=== PATIENT | male | born 1990 | race Caucasian/White ===

== ENCOUNTER 2016-05-11 10:17 | Emergency (ER) | payer OTHER ==
--- NOTE | 2016-05-11 11:31 | ED ---
General Adult HPI - General Chief complaint: Fall Stated complaint: FALL AT [facility] Time Seen by Provider: 05/11/16 11:04 Source: patient, RN notes reviewed Mode of arrival: ambulatory Limitations: no limitations - History of Present Illness Initial comments: Patient is a 25-year-old male who presents emergency room today with a chief complaint of slip and fall that occurred just prior to arrival. He states he was getting out of car slipped on the ice fell down hitting his head. He does admit to increased neck pain. Does admit to chronic changes in his neck. States increased pain in both on the right and left side. Patient also admits to pain in lower lumbar. Patient denies any bowel or bladder incontinence retention. Denies any saddle anesthesia. Denies any lumbar radiculopathy. Patient denies any other complaints. He denies any loss conscious. Denies any headache. Patient denies any recent fever, chills, shortness of breath, chest pain, abdominal pain, nausea or vomiting, numbness or tingling, dysuria or hematuria, constipation or diarrhea, headaches or visual changes, or any other complaints. - Related Data Home Medications Medication Instructions Recorded Confirmed Cholecalciferol [Vitamin D3] 1,000 unit PO DAILY 05/11/16 05/11/16 Naproxen [Naprosyn] 500 mg PO Q12HR PRN 05/11/16 05/11/16 Pyridoxine [Vitamin B-6] 50 mg PO DAILY 05/11/16 05/11/16 Previous Rx's Medication Instructions Recorded Cyclobenzaprine [Flexeril] 10 mg PO TID #20 tab 05/11/16 Allergies Allergy/AdvReac Type Severity Reaction Status Date / Time azithromycin [From Zithromax] Allergy Unknown Verified 05/11/16 10:55 cefixime [From Suprax] Allergy Unknown Verified 05/11/16 10:55 Review of Systems ROS Statement: Those systems with pertinent positive or pertinent negative responses have been documented in the HPI. ROS Other: All systems not noted in ROS Statement are negative. Past Medical History Past Medical History: Hearing Disorder / Deafness Additional Past Medical History / Comment(s): "scoliosis, tremors in the hands" History of Any Multi-Drug Resistant Organisms: None Reported Additional Past Surgical History / Comment(s): cataract Past Psychological History: No Psychological Hx Reported Smoking Status: Current every day smoker Past Alcohol Use History: Occasional Past Drug Use History: None Reported General Exam - General Exam Comments Initial Comments: General: The patient is awake and alert, in no distress, and does not appear acutely ill. Eye: Pupils are equal, round and reactive to light, extra-ocular movements are intact. No nystagmus. There is normal conjunctiva bilaterally. No signs of icterus. Ears, nose, mouth and throat: There are moist mucous membranes and no oral lesions. Neck: The neck is supple, there is no tenderness or JVD. Cardiovascular: There is a regular rate and rhythm. No murmur, rub or gallop is appreciated. Respiratory: Lungs are clear to auscultation, respirations are non-labored, breath sounds are equal. No wheezes, stridor, rales, or rhonchi. Musculoskeletal: Normal appearance of the cervical, thoracic, lumbar spine. No step-offs deforms appreciated. No tenderness midline of the cervical spine. Mild tenderness in the lower lumbar from L1 to L3. Increased paravertebral tenderness both the cervical and lumbar spine. No tenderness on palpation to the thoracic. Strength 5/5. Sensation intact. Pulses equal bilaterally 2+. Neurological: A&O x 3. CN II-XII intact, There are no obvious motor or sensory deficits. Coordination appears grossly intact. Speech is normal. Skin: Skin is warm and dry and no rashes or lesions are noted. Psychiatric: Cooperative, appropriate mood & affect, normal judgment. Limitations: no limitations Course Vital Signs 05/11/16 10:27 Temperature 97.4 F L Pulse Rate 88 Respiratory 18 Rate Blood Pressure 112/68 O2 Sat by Pulse 97 Oximetry Medical Decision Making - Medical Decision Making Patient reexamined at this time shows no signs of distress. Patient neurologically intact in the emergency room. He denies any headache. Patient' s CT of the head and neck and does show some artifact. There is no obvious mass or hemorrhage. Patient's cervical spine is negative for any acute abnormalities. X-rays lumbar spine are negative for any fractures or compressions. Results were discussed with the patient. Patient will be discharged home. Disposition Clinical Impression: Fall Disposition: HOME SELF-CARE Condition: Good Instructions: Muscle Strain (ED) Additional Instructions: Please use medication as discussed. Please be aware that muscle relaxant may make you drowsy. Please follow-up with family doctor in the next 2 days of symptoms have not improved. Please return to emergency room if the symptoms increase or worsen or for any other concerns. Prescriptions: Cyclobenzaprine [Flexeril] 10 mg PO TID #20 tab Time of Disposition: 12:26
--- NOTE | 2016-05-11 11:49 | XR ---
EXAMINATION TYPE: XR lumbar spine 2 or 3V DATE OF EXAM: 05/11/2016 11:43 AM COMPARISON: NONE HISTORY: 25 year-old male back pain after slip and fall TECHNIQUE: 3 views FINDINGS: There is rightward truncal shift. 5 lumbar type vertebral bodies. Vertebral body heights are preserve d and alignment is maintained. IMPRESSION: 1. No vertebral compression collapse or malalignment. 2. Rightward truncal shift could be positional or secondary to muscle spasm.
--- NOTE | 2016-05-11 11:57 | CT ---
EXAMINATION TYPE: CT brain france block con DATE OF EXAM: 05/11/2016 11:40 AM COMPARISON: NONE HISTORY: Patient fell today. Patient complains of headache post fall. CT DLP: 1542 mGycm Automated exposure control for dose reduction was used. TECHNIQUE: CT scan of the head and cervical spine are performed without contrast. FINDINGS: Exam is limited due to artifact for subtle hemorrhage. No obvious acute intracranial hemo rrhage or mass effect. The ventricles and sulci are within normal limits in size. The globes are int act and the visualized sinuses are clear. Cervical spine is visualized in its entirety from C1 through upper thoracic levels and demonstrates s atisfactory alignment without evidence of acute fracture or dislocation. Prevertebral soft tissue ap pears within normal limits. The C1-C2 articulation is unremarkable. Scoliosis noted. Uncovertebral joint hypertrophy greater on the right C3-C4 bilaterally and C4-C5, C5-C6 and C6-C7. IMPRESSION: 1. There is no acute fracture or dislocation evident in the cervical spine. 2. Limited exam for subtle hemorrhage due to artifact. There is no obvious sizable acute intracranial hemorrhage, mass effect, or midline shift is seen.
[2016-05-11 12:37] VITALS: BP 131/63; PULSE 77; RESP 16; TEMP 97.6
== END 2016-05-11 12:38 | disposition home or self-care (01) ==
LOC: EC 10:17
DX: S09.90XA Unspecified injury of head, initial encounter (principal); M54.5 Low back pain; W00.0XXA Fall on same level due to ice and snow, initial encounter; Z88.1 Allergy status to other antibiotic agents; Z88.8 Allergy status to other drugs, medicaments and biological substances; H91.90 Unspecified hearing loss, unspecified ear; F17.200 Nicotine dependence, unspecified, uncomplicated
CPT/HCPCS: 70450; 72100; 72125; 99284

== ENCOUNTER → 2016-06-02 | Outpatient (CLI) | payer OTHER | END | disposition home or self-care (01) | LOC: LABWHC1 09:55 | PROVIDERS: ATTEND Urology | DX: N52.9 Male erectile dysfunction, unspecified (principal) | CPT/HCPCS: 36415; 84402; 84403 ==

== ENCOUNTER → 2016-07-26 | Outpatient (CLI) | payer OTHER ==
--- NOTE | 2016-07-27 16:34 | MR ---
EXAMINATION TYPE: MR cspine/lspine wo/w con DATE OF EXAM ORDERED: 07/26/2016 4:24 PM HISTORY: Evaluate for Mass / White Matter Changes. TECHNOLOGIST HISTORY AT TIME OF EXAM: WHITE MATTER CHANGES/EVALUATE FOR MASS IV CONTRAST: 10 cc of MultiHance COMPARISON: Previous MRI of the cervical spine dated 02/10/2016. TECHNIQUE: Multiplanar, multiecho imaging of the cervical spine was obtained with and without the in travenous administration of 10 cc of MultiHance on a 1.5 colin magnet. FINDINGS: CERVICAL SPINE: Prevertebral soft tissues are normal. Vertebral body height and alignment are maintained. Atlantoaxial relationships are normal. There is a normal craniocervical junction. Cord signal is normal. At C2-C3, there is mild left-sided intervertebral foraminal narrowing. There is no significant compre ssive discopathy. There is mild degenerative change in the uncovertebral joints. The facets are unrem arkable. At C3-C4, there is bilateral intervertebral foraminal narrowing. There is a diffuse disc displacement . There is uncovertebral joint disease. The facets are unremarkable. At C4-C5, there is right-sided intervertebral foraminal narrowing. There is no significant compressiv e discopathy. There is mild degenerative change in the facets and uncovertebral joints. At C5-C6, there is mild disc space loss. There is bilateral intervertebral foraminal narrowing, great er on the right than the left. There is mild facet arthropathy. There is mild uncovertebral joint dis ease. At C6-C7, is mild disc space loss. The intervertebral foramina are reasonably well-maintained. There is no significant compressive discopathy. The facets and uncovertebral joints are unremarkable. At C7-T1, no definite abnormality is seen. LUMBAR SPINE: Paraspinal soft tissues are normal. There is a mild levoscoliosis at the thoracolumbar junction. Vertebral body height and alignment are maintained. Cord signal is maintained. The conus ends normally at the level of the mid body of L1. At T12-L1, there are hypertrophic changes in the facets. At L1-2, there are mild hypertrophic changes in the facets. At L2-3, the intervertebral foramina are well maintained. There is a minimal, bilobed disc displaceme nt. There are hypertrophic changes in the facets. At L3-4, the intervertebral foramina are well maintained. There is no significant compressive discopa thy. There is mild hypertrophic change and capsulitis within the facets. At L4-5, the intervertebral foramina are well maintained. There is no significant compressive discopa thy. There is mild hypertrophic change and capsulitis in the facets. At L5-S1, the intervertebral foramina are well maintained. There is a central disc displacement minim ally effacing the thecal sac without neural compression. There are hypertrophic changes in the facets . IMPRESSION: 1. DIFFUSE FACET AND UNCOVERTEBRAL JOINT DISEASE IN THE CERVICAL SPINE AND FACET ARTHROPATHY IN THE L UMBAR SPINE. 2. MULTILEVEL INTERVERTEBRAL FORAMINAL NARROWING. 3. MINIMAL DEGENERATIVE DISC DISEASE, L1 TO. 4. TINY DISC DISPLACEMENT CENTRALLY AT L5-S1 EFFACING THE THECAL SAC WITHOUT NEURAL COMPRESSION. 5. NORMAL CORD SIGNAL IN CERVICAL AND LUMBAR REGIONS WITHOUT EVIDENCE OF ABNORMAL ENHANCEMENT.
== END | disposition home or self-care (01) ==
LOC: RADMRIMAIN 14:26
PROVIDERS: ATTEND Neurological Surgery
DX: M99.71 Connective tissue and disc stenosis of intervertebral foramina of cervical region (principal); M46.92 Unspecified inflammatory spondylopathy, cervical region; M51.27 Other intervertebral disc displacement, lumbosacral region; M51.36 Other intervertebral disc degeneration, lumbar region; M46.96 Unspecified inflammatory spondylopathy, lumbar region
CPT/HCPCS: 72156; 72158; A9577

== ENCOUNTER → 2016-07-27 | Outpatient (CLI) | payer OTHER ==
--- NOTE | 2016-07-27 17:35 | MR ---
MR thoracic spine with and without contrast history: Other vascular evaluate for masses, G 95.19, myelopathy, scoliosis Multiplanar multisequence and postcontrast images through the thoracic spine following 11 cc MultiHan ce IV. Correlation to prior MR cervical and lumbar spine 26 July 2016 There is a dextroscoliosis present centered at approximately T7-8. There is no significant central ca nal stenosis, disc herniation, or significant foraminal encroachment. No abnormal enhancement. Thorac ic cord signal is maintained. There is multilevel facet arthropathy causing minimal posterior lateral mass effect on the thecal sac especially in the lower thoracic spine. Multilevel Schmorl's node form ation is present. IMPRESSION: Scoliosis. Facet arthropathy.
== END | disposition home or self-care (01) ==
LOC: RADMRIMAIN 14:48
PROVIDERS: ATTEND Neurological Surgery
DX: M46.84 Other specified inflammatory spondylopathies, thoracic region (principal); M41.84 Other forms of scoliosis, thoracic region; G95.19 Other vascular myelopathies; R26.0 Ataxic gait
CPT/HCPCS: 72157; A9577

== ENCOUNTER → 2017-05-19 | Outpatient (CLI) | payer OTHER ==
--- NOTE | 2017-05-20 14:33 | MR ---
EXAMINATION TYPE: MR lumbar spine wo con DATE OF EXAM: 05/19/2017 COMPARISON: July 26, 2016. HISTORY: LUMBAGO, low back pain, M 54.5 TECHNIQUE: Multiplanar, multisequence images of the lumbar spine were acquired. Visualized soft tissue structures are unremarkable. Vertebral body height is maintained. There is a mild levoscoliosis of the thoracolumbar junction. The cord signal is normal and the conus ends at the mid vertebral body of L1. Mild intervertebral disc d esiccation is noted at the level of L2-3. T12-L1: No central canal stenosis or neural foraminal narrowing is identified. There is no hypertroph ic change of the facets. L1-2: Mild hypertrophic changes identified at the facets. No central canal stenosis or neural foramin al narrowing is identified. L2-3: Intervertebral foramen are widely patent. Again minimal disc displacement is noted into both ne ural foramina as well as hypertrophic changes. There is no neural foraminal narrowing. L3-4: There is no central canal stenosis or neural foraminal narrowing. There is minimal disc bulge i dentified into both neural foramina. L4-5: Minimal disc bulges noted into both neural foramina. There is also facet hypertrophy. There is mild left-sided neural foraminal narrowing. There is no right-sided neural foraminal narrowing. There is no central canal stenosis. L5-S1: Mild facet hypertrophy is identified. No central canal stenosis or neural foraminal narrowing is identified. IMPRESSION: Mild spondylosis does not appear significant changed since the previous study.
--- NOTE | 2017-05-20 15:15 | MR ---
EXAMINATION TYPE: MR brain wo/w con DATE OF EXAM: 05/19/2017 COMPARISON: February 10, 2016 HISTORY: Tremors, fall risk Dizziness and hearing loss bilaterally patient states that he previously had a cataract removed, has had a cortisone injection within the past 2 weeks, he has either permanent eyeliner or tattoos. TECHNIQUE: Multiplanar, multisequence images of the brain and brainstem is performed without and with IV contras t, utilizing 6 mL intravenous Gadavist . FINDINGS: Diffusion weighted images demonstrate no evidence of a recent infarct or other diffusion ab normality. There is no evidence of an acute or remote hemorrhage. No extra-axial fluid collection is identified. Periventricular white matter T2 and FLAIR hyperintensity is identified along the anterior horn left lateral ventricle. These findings appear unchanged since the previous study. Slight increa sed signal is also identified on the anterior horn of the right lateral ventricle white matter, again unchanged. The ventricular system and cisternal spaces are normal in size and appearance. The brain volume is age appropriate. 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 Midline structures demonstrate normal morphology. The craniocervical junction appears within normal limits. Post contrast images demonstrate no abnormal enhancement. The dural venous sinuses appear pa tent. The visualized paranasal sinuses are clear and the globes are intact. IMPRESSION: Findings in the brain appear stable and unchanged.
== END | disposition home or self-care (01) ==
LOC: RADMRIMAIN 12:45
PROVIDERS: ATTEND Psychiatry & Neurology Pain Medicine
DX: M47.816 Spondylosis without myelopathy or radiculopathy, lumbar region (principal); R90.82 White matter disease, unspecified
CPT/HCPCS: 70553; 72148; A9581

== ENCOUNTER 2017-06-07 03:27 | Emergency (ER) | payer OTHER ==
--- NOTE | 2017-06-07 03:42 | ED ---
General Adult HPI - General Chief complaint: Fall Stated complaint: FALL,SHOULDER INJURY Time Seen by Provider: 06/07/17 03:36 Source: patient, RN notes reviewed Mode of arrival: ambulatory Limitations: no limitations - History of Present Illness Initial comments: 27-year-old male presents to the emergency department with a chief complaint of right shoulder pain. He states he was getting over to the shower he tripped and fell landing onto his right shoulder. Patient states that he did not hit his head. There is no loss of consciousness. he is chronically unsteady and is a fall risk. They were concerned due to the continued pain. He states that the front of the right shoulder. No elbow pain or wrist pain. No other injury from the fall. Worse to movement or touch. Patient denies any recent fever, chills, shortness of breath, chest pain, back pain, abdominal pain, nausea vomiting, numbness or tingling, dysuria or hematuria, constipation or diarrhea, headaches or visual changes, or any other current symptoms. - Related Data Home Medications Medication Instructions Recorded Confirmed Cholecalciferol [Vitamin D3] 1,000 unit PO DAILY 05/11/16 06/07/17 Naproxen [Naprosyn] 500 mg PO Q12HR PRN 05/11/16 06/07/17 Pyridoxine [Vitamin B-6] 50 mg PO DAILY 05/11/16 06/07/17 Previous Rx's Medication Instructions Recorded Cyclobenzaprine [Flexeril] 10 mg PO TID #20 tab 05/11/16 Allergies Allergy/AdvReac Type Severity Reaction Status Date / Time azithromycin [From Zithromax] Allergy Unknown Verified 05/11/16 10:55 cefixime [From Suprax] Allergy Unknown Verified 05/11/16 10:55 Review of Systems ROS Statement: Those systems with pertinent positive or pertinent negative responses have been documented in the HPI. ROS Other: All systems not noted in ROS Statement are negative. Past Medical History Past Medical History: Hearing Disorder / Deafness Additional Past Medical History / Comment(s): "scoliosis, tremors in the hands" History of Any Multi-Drug Resistant Organisms: None Reported Additional Past Surgical History / Comment(s): cataract Past Psychological History: No Psychological Hx Reported Smoking Status: Current every day smoker Past Alcohol Use History: Occasional Past Drug Use History: None Reported General Exam - General Exam Comments Initial Comments: General: The patient is awake and alert, in no distress, and does not appear acutely ill. Neck: The neck is supple, there is no tenderness. Cardiovascular: There is a regular rate and rhythm. No murmur, rub or gallop is appreciated. Respiratory: Lungs are clear to auscultation, respirations are non-labored, breath sounds are equal. No wheezes, stridor, rales, or rhonchi. Musculoskeletal: Sensation intact with 2+ pulses throughout the right upper extremity. Full range of motion of the right wrist and elbow. Pain to anterior palpation of the right shoulder. Pain with range of motion. No pain throughout the right scapula. Neurological: CN II-XII intact, There are no obvious motor or sensory deficits. Coordination appears grossly intact. Speech is normal. Skin: Skin is warm and dry and no rashes or lesions are noted. Psychiatric: Normal mood and affect. Limitations: no limitations Course Vital Signs 06/07/17 03:30 Temperature 97.9 F Pulse Rate 90 Respiratory 20 Rate Blood Pressure 115/77 O2 Sat by Pulse 100 Oximetry Medical Decision Making - Medical Decision Making 27-year-old male presents for right shoulder pain after a slip and fall. At this time patient underwent x-rays. This time x-rays reviewed that appears to show a right shoulder contusion. This time we discussed Motrin Tylenol for pain. We discussed icing the area. We discussed return parameters and follow- up and all questions. Patient states that he understood and he is in agreement this plan. All questions answered. He will be discharged. - Radiology Data Radiology results: report reviewed, image reviewed Disposition Clinical Impression: Fall, Contusion of right shoulder Disposition: HOME SELF-CARE Condition: Stable Instructions: Contusion in Adults (ED) Additional Instructions: Please use medication as discussed. Please follow up with family doctor if symptoms have not improved over the next two days. Please return to the emergency room if your symptoms increase or worsen or for any other concerns. Referrals: Jarad Mock MD [Primary Care Provider] - 1-2 days Time of Disposition: 03:59
--- NOTE | 2017-06-07 03:57 | XR ---
EXAM: XR Right Shoulder Complete, 2 or More Views CLINICAL HISTORY: Reason: Pain TECHNIQUE: Two or more views of the right shoulder. COMPARISON: None. FINDINGS: Bones/joints: Unremarkable. No acute fracture. No dislocation. Soft tissues: Unremarkable. IMPRESSION: Normal right shoulder x-rays.
[2017-06-07] MEDS ORDERED: IBUPROFEN 600 MG STARTER PACK 4 TAB BTL PO STA (03:59)
[2017-06-07 08:14] VITALS: BP 115/77; PULSE 90; RESP 20; TEMP 97.9
== END 2017-06-07 04:12 | disposition home or self-care (01) ==
LOC: EC 03:27
DX: S40.011A Contusion of right shoulder, initial encounter (principal); H91.90 Unspecified hearing loss, unspecified ear; F17.200 Nicotine dependence, unspecified, uncomplicated; Z79.899 Other long term (current) drug therapy; Z88.1 Allergy status to other antibiotic agents; W18.2XXA Fall in (into) shower or empty bathtub, initial encounter; Y92.002 Bathroom of unspecified non-institutional (private) residence as the place of occurrence of the external cause
CPT/HCPCS: 99283

== ENCOUNTER 2017-06-12 19:26 | Emergency (ER) | payer OTHER ==
[2017-06-12 20:08] VITALS: RESP 16
--- NOTE | 2017-06-12 21:33 | ED ---
General Adult HPI <Daniel Chawla - Last Filed: 06/12/17 22:10> - General Source: patient, RN notes reviewed Mode of arrival: wheelchair Limitations: no limitations <Sonam Page - Last Filed: 06/12/17 22:49> - General Chief complaint: Extremity Injury, Lower Stated complaint: Left Leg Numbness/Cold/Swollen Time Seen by Provider: 06/12/17 21:02 - History of Present Illness Initial comments: This is a 27-year-old male presents to the emergency department with chief complaint of left lower extremity coldness, swelling and discoloration. Friend is at bedside and contributes to history as patient has hearing difficulties. Patient states that he has chronic cold bilateral lower extremities. He sees a neurologist who has performed tests and they have been unable to pinpoint a diagnosis. Patient states that today he noticed some discoloration of his left lower extremity and states he is experiencing numbness and pain. Patient's friend states that when she saw patient today he appeared unsteady on his feet, likely due to numbness and pain of his left foot. He denies any recent injuries or traumas. He denies recent surgeries or hospitalizations. Denies bilateral calf tenderness. Denies fever or chills, abdominal pain, nausea vomiting, headache or dizziness. (Sonam Page) - Related Data Home Medications Medication Instructions Recorded Confirmed Pyridoxine [Vitamin B-6] 50 mg PO DAILY 05/11/16 06/12/17 Baclofen 10 mg PO TID PRN 06/12/17 06/12/17 Pregabalin [Lyrica] 75 mg PO BID 06/12/17 06/12/17 Primidone [Mysoline] 50 mg PO DAILY 06/12/17 06/12/17 Propranolol [Inderal] 40 mg PO BID 06/12/17 06/12/17 Allergies Allergy/AdvReac Type Severity Reaction Status Date / Time azithromycin [From Zithromax] Allergy Unknown Verified 06/12/17 21:07 cefixime [From Suprax] Allergy Unknown Verified 06/12/17 21:07 Review of Systems ROS Other: All systems not noted in ROS Statement are negative. <Daniel Chawla - Last Filed: 06/12/17 22:10> ROS Other: All systems not noted in ROS Statement are negative. <Sonam Page - Last Filed: 06/12/17 22:49> ROS Statement: Those systems with pertinent positive or pertinent negative responses have been documented in the HPI. Past Medical History Past Medical History: Hearing Disorder / Deafness Additional Past Medical History / Comment(s): "scoliosis, tremors in the hands" History of Any Multi-Drug Resistant Organisms: None Reported Additional Past Surgical History / Comment(s): cataract Past Psychological History: No Psychological Hx Reported Smoking Status: Current every day smoker Past Alcohol Use History: Occasional Past Drug Use History: None Reported <Sonam Page - Last Filed: 06/12/17 22:49> General Exam <Daniel Chawla - Last Filed: 06/12/17 22:10> Limitations: no limitations <Sonam Page - Last Filed: 06/12/17 22:49> - General Exam Comments Initial Comments: General: Awake and alert, well-developed; in no apparent distress. Friend is at bedside. HEENT: Head atraumatic, normocephalic. Pupils are equal, round and reactive to light. Extraocular movements intact. Neck: Supple. Normal ROM. Cardiovascular: Regular rate and rhythm. No murmurs, rubs or gallops. Chest symmetrical. Respiratory: Lungs clear to auscultation bilaterally. No wheezes, rales or rhonchi. Normal respiratory effort with no use of accessory muscles. Musculoskeletal: No tenderness on palpation of bilateral calves. Bilateral distal lower extremities are cold to the touch. There is mild discoloration that is blanchable to bilateral lower extremities. Posterior tibial pulses are 2+ equal and palpable bilaterally. Difficultly palpating pedal pulses. No swelling or evidence of injury. Skin: [place], warm and dry without rashes or lesions. Neurological: Alert and oriented x3. CN II-XII grossly intact. (Sonam Page) Course <Daniel Chawla - Last Filed: 06/12/17 22:10> <Sonam Page - Last Filed: 06/12/17 22:49> Vital Signs 06/12/17 20:04 Temperature 98.8 F Pulse Rate 89 Respiratory 16 Rate Blood Pressure 112/69 O2 Sat by Pulse 98 Oximetry - Reevaluation(s) Reevaluation #1: 06/12/17 22:10 Patient reevaluated by myself, Dr. Chawla. Patient resting comfortably in bed. Patient states this is a chronic condition for him. Patient has seen his doctor as well as neurologist for this. Patient has chronic coolness to his lower legs as well as discomfort. Patient states earlier today there was some possible swelling and discoloration. Patient states it appears somewhat discolored still. No color change noticed on exam. Lower legs into the feet is cool. Dorsalis pedis pulse is difficult to obtain however is obtainable with Doppler. This is felt to be likely secondary to patient's abnormal foot structure. Posterior tibialis pulses +2 bilateral. Cap refill 2 seconds. Patient is advised that he should follow up with vascular surgeon and rheumatology as well as primary care physician. (Daniel Chawla) Medical Decision Making <Daniel Chawla - Last Filed: 06/12/17 22:10> - Radiology Data Radiology results: report reviewed <Sonam Page - Last Filed: 06/12/17 22:49> - Medical Decision Making This is a 27-year-old male who presents to the emergency department for evaluation of lower extremity swelling, discoloration and coldness. This is a chronic issue for patient who has had workups in the past. Patient denies any recent injury, falls or trauma. Patient does have some mild coolness and discoloration to the bilateral lower extremities. Patient complains of pain to the left foot which does have Charcot deformity. This case was discussed with attending physician, Dr. Chawla who also evaluated the patient. Ultrasound venous Doppler revealed no evidence for a DVT. Patient will be discharged home with referral to vascular and rheumatology. Patient is in agreement with plan and voices understanding. All questions were answered. (Sonam Page) - Radiology Data Ultrasound venous Doppler left lower extremity impression: Normal exam. No evidence of deep venous thrombosis in the left leg. (Sonam Page) Disposition <Daniel Chawla - Last Filed: 06/12/17 22:10> Time of Disposition: 22:49 <Sonam Page - Last Filed: 06/12/17 22:49> Clinical Impression: Foot pain Disposition: HOME SELF-CARE Condition: Good Instructions: Leg Pain (ED) Additional Instructions: Please follow-up with Dr. Kamara, vascular surgery and Dr. Taylor, rheumatology within 1-2 days. Please follow up with primary care provider within 1-2 days. Return to emergency department if symptoms should worsen or any concerns arise. Referrals: Jarad Mock MD [Primary Care Provider] - 1-2 days Sunil Kamara MD [STAFF PHYSICIAN] - 1-2 days Chel Taylor MD [STAFF PHYSICIAN] - 1-2 days
--- NOTE | 2017-06-12 22:45 | US ---
EXAMINATION TYPE: US venous doppler duplex LE LT DATE OF EXAM: 06/12/2017 10:21 PM COMPARISON: NONE CLINICAL HISTORY: Pain. Left leg edema and numbness. SIDE PERFORMED: Left TECHNIQUE: The lower extremity deep venous system is examined utilizing real time linear array sonog fariha with graded compression, doppler sonography and color-flow sonography. VESSELS IMAGED: External Iliac Vein (EIV) Common Femoral Vein Deep Femoral Vein Greater Saphenous Vein * Femoral Vein Popliteal Vein Small Saphenous Vein * Proximal Calf Veins (* superficial vessels) Left Leg: Negative for DVT No evidence of DVT left leg. IMPRESSION: Normal exam. No evidence of deep venous thrombosis in the left leg.
[2017-06-12 23:00] VITALS: BP 115/62; PULSE 69; TEMP 98.7
== END 2017-06-12 23:00 | disposition home or self-care (01) ==
LOC: EC 19:26
DX: M79.672 Pain in left foot (principal); H91.90 Unspecified hearing loss, unspecified ear; F17.200 Nicotine dependence, unspecified, uncomplicated; Z88.1 Allergy status to other antibiotic agents; Z79.899 Other long term (current) drug therapy
CPT/HCPCS: 99283

== ENCOUNTER 2017-12-20 15:01 | Emergency (ER) | payer OTHER ==
[2017-12-20 15:51] VITALS: TEMP 98.5
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
--- NOTE | 2017-12-20 18:36 | XR ---
EXAMINATION: XR chest 2V DATE AND TIME: 12/20/2017 5:55 PM CLINICAL INDICATION: Pain TECHNIQUE: PA and lateral COMPARISON: 05/24/2011 FINDINGS: The lungs are clear. The pleural spaces are negative. The cardiac silhouette is not enlarged. The remainder of the mediastinal silhouette is unremarkable. The skeletal structures are negative for fracture. The soft tissues are negative for acute findings. IMPRESSION: NO ACUTE PROCESS.
--- NOTE | 2017-12-20 18:38 | XR ---
PROCEDURE: XR lumbar spine - 3V DATE AND TIME: 12/20/2017 5:56 PM CLINICAL INDICATION: [facility] Pain TECHNIQUE: Department protocol. 3V COMPARISON: 05/11/2016 FINDINGS: There is no fracture or malalignment. The soft tissues are unremarkable. IMPRESSION: NO ACUTE PROCESS.
[2017-12-20] MEDS ORDERED: ACETAMINOPHEN TAB 500 MG TAB PO STA (18:58)
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
[2017-12-20 19:11] VITALS: BP 117/70; PULSE 66; RESP 18
== END 2017-12-20 19:13 | disposition home or self-care (01) ==
LOC: EC 15:01
DX: M54.5 Low back pain (principal); R07.89 Other chest pain; R40.2412 Glasgow coma scale score 13-15, at arrival to emergency department; M54.2 Cervicalgia; H91.90 Unspecified hearing loss, unspecified ear; G62.9 Polyneuropathy, unspecified; F17.200 Nicotine dependence, unspecified, uncomplicated; Z79.899 Other long term (current) drug therapy; Z88.1 Allergy status to other antibiotic agents; V43.62XA Car passenger injured in collision with other type car in traffic accident, initial encounter; Y93.89 Activity, other specified; Y92.410 Unspecified street and highway as the place of occurrence of the external cause
CPT/HCPCS: 71046; 72100; 72125; 99284

== ENCOUNTER → 2019-02-05 | Outpatient (CLI) | payer OTHER ==
--- NOTE | 2019-02-05 14:06 | FL ---
Modified barium swallow HISTORY: Dysphasia 1 minute 36 seconds fluoroscopy time, no intraoperative images obtained Patient was evaluated in real-time fluoroscopy in the lateral projection during ingestion of food and liquids mixed with barium. Some vallecular residuals are noted throughout the exam. Laryngeal penetration was identified during ingestion of liquids which resolved spontaneously. No evident aspiration. See dictated report from sp eech pathology.
== END | disposition home or self-care (01) ==
LOC: RADFLMAIN 10:29
PROVIDERS: ATTEND Psychiatry & Neurology Neurology
DX: R13.10 Dysphagia, unspecified (principal); G89.4 Chronic pain syndrome
CPT/HCPCS: 74230; 83519

== ENCOUNTER → 2019-05-22 | Outpatient (CLI) | payer OTHER ==
[2019-05-23 00:34] LABS: African American GFR (CKD) 142.9 (60.0-200.0); Anion Gap 9.5 mmol/L (4.00-12.00); BUN/Creat Ratio 18.75 Ratio (12.00-20.00); Calcium 9.1 mg/dL (8.7-10.3); Carbon Dioxide 26.5 mmol/L (21.6-31.8); Non-African American GFR(CKD) 123.3 (60.0-200.0); Potassium 4.2 mmol/L (3.5-5.5)
[2019-05-23 00:43] LABS: Folate, Serum 4.8 ng/mL
== END | disposition home or self-care (01) ==
LOC: LABWHC1 16:16
PROVIDERS: ATTEND Student in an Organized Health Care Education/Training Program
DX: N31.9 Neuromuscular dysfunction of bladder, unspecified (principal); H53.8 Other visual disturbances
CPT/HCPCS: 36415; 80048; 82607; 82746; 84207; 84425; 84590

== ENCOUNTER → 2019-05-22 | Outpatient (CLI) | payer OTHER ==
--- NOTE | 2019-05-22 16:30 | US ---
EXAMINATION TYPE: US kidneys/renal and bladder DATE OF EXAM: 05/22/2019 COMPARISON: MRI May 19, 2017. CT June 07, 2012 CLINICAL HISTORY: N31.9 Neuromuscular dysfunction of bladder. Neurogenic bladder Pt non-verbal EXAM MEASUREMENTS: Right Kidney: 10.6 x 5.1 x 5.0 cm Left Kidney: 11.1 x 4.8 x 5.6 cm Right Kidney: Dilated renal pelvis= 1.9 cm Left Kidney: Slightly dilated renal pelvis= 1.1 cm Bladder: [place] distended, difficult for pt to void Bilateral Jets seen: No There is new mild right-sided pyelocaliectasis. Adjacent liver with scanning right kidney is heteroge neously hyperechoic No nephrolithiasis is seen. No masses are identified. The urinary bladder is we ll distended. Bilateral ureteral jets are not seen. Mild pyelocaliectasis left kidney also seen IMPRESSION: Bilateral mild hydronephrosis likely product of abnormally distended bladder.
== END | disposition home or self-care (01) ==
LOC: RADUSWWP 05-16 13:50
PROVIDERS: ATTEND Student in an Organized Health Care Education/Training Program
DX: N32.89 Other specified disorders of bladder (principal)
CPT/HCPCS: 76770

== ENCOUNTER → 2020-03-03 | Outpatient (CLI) | payer OTHER ==
[2020-03-03 14:47] LABS: Basophils # (A) 0.1 k/uL (0-0.2); Basophils % (A) 1 %; Eosinophils # (A) 0.2 k/uL (0-0.7); Eosinophils % (A) 2 %; HCT 45.7 % (39.0-53.0); HGB 15.3 gm/dL (13.0-17.5); Lymphocytes # (A) 1.1 k/uL (1.0-4.8); Lymphocytes % (A) 13 %; MCH 30.2 pg (25.0-35.0); MCHC 33.6 g/dL (31.0-37.0); MCV 90.1 fL (80.0-100.0); Mean Platelet Volume 7.5; Monocytes # (A) 0.4 k/uL (0-1.0); Monocytes % (A) 5 %; Neutrophils # (A) 6.2 k/uL (1.3-7.7); Neutrophils % (A) 77 %; Platelet Count 246 k/uL (150-450); RBC 5.07 m/uL (4.30-5.90); RDW 12.7 % (11.5-15.5)
[2020-03-03 20:26] LABS: Erythrocyte Sedimentation Rate 11 mm/Hr (0-15)
[2020-03-03 21:57] LABS: ALT 30 U/L (10-49); AST 21 U/L (14-35); African American GFR (CKD) 141.9 (60.0-200.0); Albumin/Globulin Ratio 2.26 (1.60-3.17); Alkaline Phosphatase 85 U/L (41-126); BUN/Creat Ratio 11.25 Ratio (12.00-20.00); C Reactive Protein <0.4 mg/dL (0.0-0.8); Calcium 9.1 mg/dL (8.7-10.3); Carbon Dioxide 26.7 mmol/L (21.6-31.8); Chloride 106 mmol/L (96-109); Creatine Kinase 72 U/L (35-257); Globulin 1.9 g/dL (1.6-3.3); Glucose 134 mg/dL (70-110); Non-African American GFR(CKD) 122.4 (60.0-200.0); Phosphorus 3.2 mg/dL (2.4-5.1); Sodium 142 mmol/L (135-145); Total Bilirubin 0.6 mg/dL (0.3-1.2); Total Protein 6.2 g/dL (6.2-8.2)
[2020-03-04 13:02] LABS: Vitamin E (Alpha Tocopherol) 899 ug/dL (500-1800)
== END | disposition home or self-care (01) ==
LOC: LABWHC1 13:13
PROVIDERS: ATTEND Psychiatry & Neurology Pain Medicine
DX: G32.81 Cerebellar ataxia in diseases classified elsewhere (principal); Z51.81 Encounter for therapeutic drug level monitoring
CPT/HCPCS: 36415; 80053; 82248; 82525; 82550; 82607; 83605; 84100; 84439; 84443; 84446; 84481; 85025; 85652; 86140

== ENCOUNTER 2020-06-24 19:32 | Observation (INO) | payer OTHER ==
[2020-06-24 20:34] LABS: Basophils # (A) 0.1 k/uL (0-0.2); Basophils % (A) 1 %; Eosinophils # (A) 0.2 k/uL (0-0.7); Eosinophils % (A) 2 %; HCT 45.7 % (39.0-53.0); HGB 15.5 gm/dL (13.0-17.5); Lymphocytes # (A) 1.2 k/uL (1.0-4.8); Lymphocytes % (A) 12 %; MCH 29.4 pg (25.0-35.0); MCHC 33.9 g/dL (31.0-37.0); MCV 86.6 fL (80.0-100.0); Mean Platelet Volume 6.8; Monocytes # (A) 0.4 k/uL (0-1.0); Monocytes % (A) 4 %; Neutrophils % (A) 81 %; Platelet Count 292 k/uL (150-450); RBC 5.28 m/uL (4.30-5.90); RDW 12.6 % (11.5-15.5); WBC 9.9 k/uL (3.8-10.6)
[2020-06-24 20:42] LABS: Potassium 4.6 mmol/L (3.5-5.1)
[2020-06-24 20:43] LABS: ALT 30 U/L (4-49); AST 26 U/L (17-59); African American GFR (CKD) >90 (>60 ml/min/1.73 sqM); Albumin 4.2 g/dL (3.5-5.0); Alkaline Phosphatase 77 U/L (38-126); Anion Gap 9 mmol/L; Blood Urea Nitrogen 13 mg/dL (9-20); Calcium 9.7 mg/dL (8.4-10.2); Carbon Dioxide 28 mmol/L (22-30); Chloride 99 mmol/L (98-107); Glucose 88 mg/dL (74-99); Non-African American GFR(CKD) >90 (>60 ml/min/1.73 sqM); Sodium 136 mmol/L (137-145); Total Protein 7.1 g/dL (6.3-8.2)
--- NOTE | 2020-06-24 20:44 | XR ---
EXAMINATION TYPE: XR chest 2V DATE OF EXAM: 06/24/2020 COMPARISON: 12/20/2017. HISTORY: Chest pain. TECHNIQUE: Frontal and lateral views of the chest are obtained. FINDINGS: There is no focal air space opacity, pleural effusion, or pneumothorax seen. The cardiac silhouette size is within normal limits. The osseous structures are intact. IMPRESSION: No acute cardiopulmonary process.
[2020-06-24 20:49] LABS: INR 0.9 (<1.2); Partial Thromboplastin Time 22.1 sec (22.0-30.0); Prothrombin Time 9.8 sec (9.0-12.0)
--- NOTE | 2020-06-24 22:01 | ED ---
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 Patient was recently in [facility] with his mother 2 weeks ago. They have been in [place] for the past 2 weeks and negative course of the test upon arrival. Mother states that he has not had any complaints she states she has some chronic leg pain. She states that he really was not complaining of pain but she had noticed there was discoloration of the left second and third toe. She states she was concerned as his legs always feel cold. She will be sure nothing was wrong and had his father bring him to the emergency department. Patient states that he does have pain when he bumps his feet but otherwise its his same daily pain. Denies chest pain, dyspnea, nausea, vomiting, abdominal pain. Denies additional complaints. Pt resting comfortably. (Chiquita Douglas) - Related Data Home Medications Medication Instructions Recorded Confirmed Baclofen [Lioresal] 10 - 20 mg PO QID 06/24/20 06/24/20 Metoprolol Tartrate [Lopressor] 100 mg PO BID 06/24/20 06/24/20 Nortriptyline [Pamelor] 50 mg PO DAILY 06/24/20 06/24/20 Potassium Chloride ER [K-Dur 10] 10 meq PO DAILY 06/24/20 06/24/20 Primidone [Mysoline] 50 mg PO HS 06/24/20 06/24/20 Zolpidem Tartrate [Ambien] 2.5 - 5 mg PO HS 06/24/20 06/24/20 Previous Rx's Medication Instructions Recorded Apixaban [Eliquis Starter Pack 0 mg PO DIRECTED 30 Days #1 pack 06/26/20 (for VTE)] Aspirin 81 mg PO DAILY #30 chewable 06/26/20 Allergies Allergy/AdvReac Type Severity Reaction Status Date / Time azithromycin [From Zithromax] Allergy Unknown Verified 06/24/20 22:26 cefixime [From Suprax] Allergy Unknown Verified 06/24/20 22:26 Review of Systems ROS Other: All systems not noted in ROS Statement are negative. <Chiquita Douglas - Last Filed: 06/24/20 22:49> ROS Other: All systems not noted in ROS Statement are negative. <Katelyn Britton Jerrod - Last Filed: 06/29/20 14:37> ROS Statement: Those systems with pertinent positive or pertinent negative responses have been documented in the HPI. Past Medical History Past Medical History: Hearing Disorder / Deafness Additional Past Medical History / Comment(s): "scoliosis, tremors in the hands", neuropathy. ataxia History of Any Multi-Drug Resistant Organisms: None Reported Additional Past Surgical History / Comment(s): cataract Past Psychological History: No Psychological Hx Reported Smoking Status: Never smoker Past Alcohol Use History: Occasional Past Drug Use History: None Reported <Chiquita Douglas - Last Filed: 06/24/20 22:49> General Exam Limitations: no limitations <Chiquita Douglas - Last Filed: 06/24/20 22:49> - General Exam Comments Initial Comments: General: The patient is awake and alert, in no distresss Eye: +3 mm pupils are equal, round and reactive to light, extra-ocular movements are intact. No nystagmus. There is normal conjunctiva bilaterally. No signs of icterus. Ears, nose, mouth and throat: There are moist mucous membranes and no oral lesions. Neck: The neck is supple, there is no tenderness or JVD. Cardiovascular: There is a regular rate and rhythm. No murmur, rub or gallop is appreciated. Respiratory: Lungs are clear to auscultation, respirations are non-labored, breath sounds are equal. No wheezes, stridor, rales, or rhonchi. Gastrointestinal: Soft, non-distended, non-tender abdomen without masses or organomegaly noted. There is no rebound or guarding present. Musculoskeletal: Coolness of the LE b/l. No DP pulse appreciated, PT pulses by dopple. There is darkening digits 2/3 of left foot. patient denies pain to palpation of the legs, states some pain the feet b/l. Radial pulses +2 equal in comparison b/l. Neurological: A&O x 3. CN II-XII intact, There are no obvious motor or sensory deficits. Coordination appears grossly intact. Speech is normal. Skin: Skin is warm and dry and no rashes or lesions are noted. Psychiatric: Cooperative, appropriate mood & affect, normal judgment. (Chiquita Douglas) Course Vital Signs 06/24/20 06/24/20 06/24/20 19:37 20:40 22:00 Temperature 98.0 F Pulse Rate 85 102 H 100 Respiratory 18 18 16 Rate Blood Pressure 137/85 116/72 121/79 O2 Sat by Pulse 98 97 Oximetry 06/25/20 00:41 Temperature Pulse Rate 101 H Respiratory 18 Rate Blood Pressure 129/87 O2 Sat by Pulse 93 L Oximetry Medical Decision Making - Lab Data Result diagrams: 06/24/20 20:23 06/24/20 20:23 <Chiquita Douglas - Last Filed: 06/24/20 22:49> - Lab Data Result diagrams: 06/26/20 06:55 06/24/20 20:23 <Katelyn Britton - Last Filed: 06/29/20 14:37> - Medical Decision Making Labs stable. no significant pain. but patient legs b/l are cool. no abdominal pain. no chest pain. Radiologist called twice initially thought the occlusion was at the popliteal level bilaterally however he states he was looking at the wrong images and states that he did have flow this seemed to stop near the tibial and peroneal bilaterally. No aneurysms noted or source of emboli. I did speak with on-call vascular surgeon Dr. Tesfaye x 2 that states that he does not believe this is acute given hx of cool legs, and no significant acute pain. I discussed possibility of partial portal vein thrombosis--which radiologist stated on phone he felt it could be artifact. He recommended the patient be placed on heparin and admitted. [facility] Britton did evaluate the patient. Mother and patient agreeable to admission and care plan. (Chiquita Douglas) I was available for consultation in the emergency department. The history and physical exam were done by the midlevel provider. I was consulted for this patients care. I reviewed the case with the midlevel provider and based on their presentation of the patient, I agree with the assessment, medical decision making and plan of care as documented. I evaluated the patient myself. PT pulses found on bedside doppler however unable to doppler/palpate b/l DP. Patient sent for CT angio and discussion with Dr. Tesfaye. Patient will be heparinized and admitted. Chart was dictated using [employer] dictation software. Attempts were made to correct any dictation errors however some typographical errors may persist. Patient was seen during a national state of emergency due to the Covid-19 pandemic. (Katelyn Britton) - Lab Data Lab Results 06/24/20 06/24/20 06/24/20 Range/Units 20:23 20:23 20:23 WBC 9.9 (3.8-10.6) k/uL RBC 5.28 (4.30-5.90) m/uL Hgb 15.5 (13.0-17.5) gm/dL Hct 45.7 (39.0-53.0) % MCV 86.6 (80.0-100.0) fL MCH 29.4 (25.0-35.0) pg MCHC 33.9 (31.0-37.0) g/dL RDW 12.6 (11.5-15.5) % Plt Count 292 (150-450) k/uL MPV 6.8 Neutrophils % 81 % Lymphocytes % 12 % Monocytes % 4 % Eosinophils % 2 % Basophils % 1 % Neutrophils # 8.0 H (1.3-7.7) k/uL Lymphocytes # 1.2 (1.0-4.8) k/uL Monocytes # 0.4 (0-1.0) k/uL Eosinophils # 0.2 (0-0.7) k/uL Basophils # 0.1 (0-0.2) k/uL PT 9.8 (9.0-12.0) sec INR 0.9 (<1.2) APTT 22.1 (22.0-30.0) sec Sodium 136 L (137-145) mmol/L Potassium 4.6 (3.5-5.1) mmol/L Chloride 99 (98-107) mmol/L Carbon Dioxide 28 (22-30) mmol/L Anion Gap 9 mmol/L BUN 13 (9-20) mg/dL Creatinine 0.75 (0.66-1.25) mg/dL Est GFR (CKD-EPI)AfAm >90 (>60 ml/min/1.73 sqM) Est GFR (CKD-EPI)NonAf >90 (>60 ml/min/1.73 sqM) Glucose 88 (74-99) mg/dL Calcium 9.7 (8.4-10.2) mg/dL Magnesium 2.0 (1.6-2.3) mg/dL Total Bilirubin 1.0 (0.2-1.3) mg/dL AST 26 (17-59) U/L ALT 30 (4-49) U/L Alkaline Phosphatase 77 (38-126) U/L Troponin I (0.000-0.034) ng/mL NT-Pro-B Natriuret Pep pg/mL Total Protein 7.1 (6.3-8.2) g/dL Albumin 4.2 (3.5-5.0) g/dL Coronavirus (PCR) (Not Detectd) 06/24/20 06/24/20 06/24/20 Range/Units 20:23 20:23 22:38 WBC (3.8-10.6) k/uL RBC (4.30-5.90) m/uL Hgb (13.0-17.5) gm/dL Hct (39.0-53.0) % MCV (80.0-100.0) fL MCH (25.0-35.0) pg MCHC (31.0-37.0) g/dL RDW (11.5-15.5) % Plt Count (150-450) k/uL MPV Neutrophils % % Lymphocytes % % Monocytes % % Eosinophils % % Basophils % % Neutrophils # (1.3-7.7) k/uL Lymphocytes # (1.0-4.8) k/uL Monocytes # (0-1.0) k/uL Eosinophils # (0-0.7) k/uL Basophils # (0-0.2) k/uL PT (9.0-12.0) sec INR (<1.2) APTT (22.0-30.0) sec Sodium (137-145) mmol/L Potassium (3.5-5.1) mmol/L Chloride (98-107) mmol/L Carbon Dioxide (22-30) mmol/L Anion Gap mmol/L BUN (9-20) mg/dL Creatinine (0.66-1.25) mg/dL Est GFR (CKD-EPI)AfAm (>60 ml/min/1.73 sqM) Est GFR (CKD-EPI)NonAf (>60 ml/min/1.73 sqM) Glucose (74-99) mg/dL Calcium (8.4-10.2) mg/dL Magnesium (1.6-2.3) mg/dL Total Bilirubin (0.2-1.3) mg/dL AST (17-59) U/L ALT (4-49) U/L Alkaline Phosphatase (38-126) U/L Troponin I <0.012 (0.000-0.034) ng/mL NT-Pro-B Natriuret Pep 18 pg/mL Total Protein (6.3-8.2) g/dL Albumin (3.5-5.0) g/dL Coronavirus (PCR) Not Detected (Not Detectd) Disposition Is patient prescribed a controlled substance at d/c from ED?: No Time of Disposition: 22:08 Decision to Admit Reason: Admit from EC Decision Date: 06/24/20 Decision Time: 22:08 <Chiquita Douglas - Last Filed: 06/24/20 22:49> <Katelyn Britton - Last Filed: 06/29/20 14:37> Clinical Impression: Portal vein thrombosis, Occlusion of right tibial artery, Occlusion of left tibial artery, Occlusion of peroneal artery Disposition: ADMITTED IP TO THIS [facility] Condition: Serious
[2020-06-24] MEDS ORDERED: HEPARIN SODIUM,PORCINE 5,000 UNIT/ML 1 ML VIAL IV PRN (22:07)
[2020-06-24] MEDS ORDERED: HEPARIN SODIUM,PORCINE 10,000 UNIT/ML 1 ML VIAL IV ONE (22:07)
--- NOTE | 2020-06-24 22:26 | CT ---
Exam: CTA CHEST, ABDOMEN AND PELVIS WITH RUNOFF. Clinical Indication: Bilateral pulseless feet with black toes. Comparison: None. Technique: Axial CTA imaging is performed through the chest, abdomen and pelvis with runoffs followin g bolus intravenous injection of 100 mL Isovue 370 intravenous contrast. Coronal, sagittal and MIPs r eformats were reviewed. Findings: CT ANGIOGRAM: The thoracic aorta is grossly normal in caliber. There is no atherosclerotic disease. There is no ane urysmal dilatation, dissection or rupture within the thoracic aortic system. The takeoff of the great vessels is unremarkable in appearance. The abdominal aorta is grossly normal in caliber. There is no atherosclerotic disease. There is no ev idence of aneurysmal dilatation, dissection or rupture. The celiac artery, SMA, LANDRY, iliac and visual ized branches are grossly intact without occlusion or high-grade stenosis. There is adequate opacification of the pulmonary arteries. No evidence of a filling defect to indicat e embolus. Bilateral lower extremity: There is absent contrast opacification from the level of the proximal ante rior tibial, posterior tibial and peroneal arteries bilaterally through the remainder of the leg and foot. Otherwise the bilateral femoral and popliteal arteries are patent without high-grade stenosis o r aneurysm. There is heterogeneous opacification of the main portal vein. CHEST: There is no significant focal consolidation, pleural effusion or pneumothorax. There is normal heart size without pericardial effusions. There are no suspicious pulmonary nodules. No evidence of lymphad enopathy. No acute osseous abnormality. ABDOMEN/PELVIS: The liver, gallbladder, pancreas, bilateral adrenal glands and spleen are unremarkable. No hydronephr osis or nephrolithiasis. There is no bowel obstruction, free air or fluid. No acute appendicitis. No evidence of lymphadenopat hy. The urinary bladder is unremarkable. No acute osseous abnormality. Impression: Absent contrast opacification of the bilateral tibial and peroneal arteries, from the proximal portio n through the level of the foot, consistent with occlusion. Heterogeneous opacification of the main portal vein, appears to be arterial phase admixture artifact. However recommend ultrasound correlation when feasible to exclude nonocclusive thrombus. Otherwise no acute abnormality of the chest, abdomen or pelvis. Findings were reported to MEENU Douglas by me at the time of dictation.
[2020-06-24] MEDS: HEPARIN SOD,PORK IN 0.45% NACL 25,000 UNIT in 0.45% NACL 1 250ML.BAG IV SCH (22:56)
[2020-06-25] MEDS ORDERED: NALOXONE 0.4 MG/ML 1 ML VIAL IV PRN (00:07)
[2020-06-25 04:49] LABS: Basophils # (A) 0.1 k/uL (0-0.2); Basophils % (A) 1 %; Eosinophils # (A) 0.1 k/uL (0-0.7); Eosinophils % (A) 1 %; HCT 43.9 % (39.0-53.0); HGB 14.9 gm/dL (13.0-17.5); Lymphocytes # (A) 1.4 k/uL (1.0-4.8); Lymphocytes % (A) 14 %; MCH 29.7 pg (25.0-35.0); MCHC 33.9 g/dL (31.0-37.0); MCV 87.5 fL (80.0-100.0); Mean Platelet Volume 6.9; Monocytes # (A) 0.4 k/uL (0-1.0); Monocytes % (A) 5 %; Neutrophils # (A) 7.4 k/uL (1.3-7.7); Neutrophils % (A) 78 %; Platelet Count 267 k/uL (150-450); RBC 5.01 m/uL (4.30-5.90); RDW 12.6 % (11.5-15.5); WBC 9.4 k/uL (3.8-10.6)
--- NOTE | 2020-06-25 11:45 | P.GSCN ---
History of Present Illness Consult date: 06/25/20 Reason for Consult: Bilateral arterial insufficiency History of present illness: This is a 30-year-old male patient who came into the emergency department for evaluation of cold lower extremities, with her change to his left toes. The patient has a past medical history that includes spinocerebellar ataxia, he was deaf at age 12 and is lost feeling inability to walk 4 years ago. The patient cannot state if he has any pain to his lower extremities as he has had no feeling for the past 4 years. He also has difficulty with constipation and urination due to inability to feel urge. CT angiogram thoracic and abdomen with runoff: Reports absent contrast opacification of the bilateral tibial and peritoneal arteries, from the proximal portion through the level of the foot, consistent with occlusion. Heterogeneous opacification of the main portal vein, appears to be arterial phase admixture artifact. However recommend ultrasound correlation when feasible to exclude nonocclusive thrombus. Otherwise no acute abnormality of the chest, abdomen or pelvis. Review of Systems 14 point review systems was completed with the patient's mother, all pertinent positives and negatives as stated in the HPI. Past Medical History Past Medical History: Hearing Disorder / Deafness Additional Past Medical History / Comment(s): "scoliosis, tremors in the hands", neuropathy. ataxia History of Any Multi-Drug Resistant Organisms: None Reported Additional Past Surgical History / Comment(s): cataract Past Psychological History: No Psychological Hx Reported Smoking Status: Never smoker Past Alcohol Use History: Occasional Past Drug Use History: None Reported Medications and Allergies Home Medications Medication Instructions Recorded Confirmed Type Baclofen [Lioresal] 10 - 20 mg PO QID 06/24/20 06/24/20 History Metoprolol Tartrate [Lopressor] 100 mg PO BID 06/24/20 06/24/20 History Nortriptyline [Pamelor] 50 mg PO DAILY 06/24/20 06/24/20 History Potassium Chloride ER [K-Dur 10] 10 meq PO DAILY 06/24/20 06/24/20 History Primidone [Mysoline] 50 mg PO HS 06/24/20 06/24/20 History Zolpidem Tartrate [Ambien] 2.5 - 5 mg PO HS 06/24/20 06/24/20 History Allergies Allergy/AdvReac Type Severity Reaction Status Date / Time azithromycin [From Zithromax] Allergy Unknown Verified 06/24/20 22:26 cefixime [From Suprax] Allergy Unknown Verified 06/24/20 22:26 Surgical - Exam Vital Signs Temp Pulse Resp BP Pulse Ox 98.0 F 85 18 137/85 98 06/24/20 19:37 06/24/20 19:37 06/24/20 19:37 06/24/20 19:37 06/24/20 19:37 General appearance: The patient is alert, oriented, in no acute distress. Deaf. HET: Head is normocephalic and atraumatic. Neck: Supple without lymphadenopathy. Trachea midline. Heart: S1 S2. Regular rate and rhythm. Lungs: Clear are to auscultation Abdomen: Soft, nontender, nondistended with bowel sounds. Extremities: Bilateral palpable radial pulses. Bilateral feet cool to the touch with decreased biliary refill, greater than 4-5 seconds. Left foot third and fourth toes purple in color. He has palpable bilateral femoral pulses. Able to get audible bilateral popliteal and posterior tibialis Doppler signals. Unable to palpate or get Doppler signal of dorsalis pedis pulses. Neurological: Patient unable to feel bilateral lower extremity, unable to walk or bear weight. Patient is able to move bilateral lower extremities. Results CT angiogram thoracic and abdomen with runoff: Reports absent contrast opacification of the bilateral tibial and peritoneal arteries, from the proximal portion through the level of the foot, consistent with occlusion. Heterogeneous opacification of the main portal vein, appears to be arterial phase admixture artifact. However recommend ultrasound correlation when feasible to exclude nonocclusive thrombus. Otherwise no acute abnormality of the chest, abdomen or pelvis. - Labs 06/25/20 04:35 06/24/20 20:23 Abnormal Lab Results - Last 24 Hours (Table) 06/24/20 06/24/20 06/25/20 Range/Units 20:23 20:23 04:35 Neutrophils # 8.0 H (1.3-7.7) k/uL APTT 69.9 H (22.0-30.0) sec Sodium 136 L (137-145) mmol/L 06/25/20 Range/Units 11:05 Neutrophils # (1.3-7.7) k/uL APTT 65.1 H (22.0-30.0) sec Sodium (137-145) mmol/L Diabetes panel 06/24/20 Range/Units 20:23 Sodium 136 L (137-145) mmol/L Potassium 4.6 (3.5-5.1) mmol/L Chloride 99 (98-107) mmol/L Carbon Dioxide 28 (22-30) mmol/L BUN 13 (9-20) mg/dL Creatinine 0.75 (0.66-1.25) mg/dL Glucose 88 (74-99) mg/dL Calcium 9.7 (8.4-10.2) mg/dL AST 26 (17-59) U/L ALT 30 (4-49) U/L Alkaline Phosphatase 77 (38-126) U/L Total Protein 7.1 (6.3-8.2) g/dL Albumin 4.2 (3.5-5.0) g/dL Calcium panel 06/24/20 Range/Units 20:23 Calcium 9.7 (8.4-10.2) mg/dL Albumin 4.2 (3.5-5.0) g/dL Pituitary panel 06/24/20 Range/Units 20:23 Sodium 136 L (137-145) mmol/L Potassium 4.6 (3.5-5.1) mmol/L Chloride 99 (98-107) mmol/L Carbon Dioxide 28 (22-30) mmol/L BUN 13 (9-20) mg/dL Creatinine 0.75 (0.66-1.25) mg/dL Glucose 88 (74-99) mg/dL Calcium 9.7 (8.4-10.2) mg/dL Adrenal panel 06/24/20 Range/Units 20:23 Sodium 136 L (137-145) mmol/L Potassium 4.6 (3.5-5.1) mmol/L Chloride 99 (98-107) mmol/L Carbon Dioxide 28 (22-30) mmol/L BUN 13 (9-20) mg/dL Creatinine 0.75 (0.66-1.25) mg/dL Glucose 88 (74-99) mg/dL Calcium 9.7 (8.4-10.2) mg/dL Total Bilirubin 1.0 (0.2-1.3) mg/dL AST 26 (17-59) U/L ALT 30 (4-49) U/L Alkaline Phosphatase 77 (38-126) U/L Total Protein 7.1 (6.3-8.2) g/dL Albumin 4.2 (3.5-5.0) g/dL Assessment and Plan Assessment: 1. Bilateral arterial insufficiency 2. Abnormal CT findings reporting bilateral tibial and peroneal arteries occlusion with possible portal vein occlusion 3. Spinal cerebellar ataxia 4. Deaf Plan: CT a with runoff reviewed by Dr. Tesfaye. Continue heparin drip. There is no acute indication for any vascular surgical intervention at this time. Further recommendations to follow. Thank you for this consultation allowing us take part in the plan of care your patient during his hospital stay. The impression and plan of care has been dictated as directed. I performed a history and examination of this patient, discussed the same with the dictator. I agree with the dictator's note ,documented as a scribe. Any additional findings or plans will be noted.
--- NOTE | 2020-06-25 13:44 | P.HPIM ---
History of Present Illness 30-year-old pleasant male came in with the complaints of the colon time lower extremities with cyanosis of bilateral lower extremities. Patient had a CT angiogram for the lower extremities thoracic and abdominal CT angiogram with marianela bates found to have occlusion of the tibial and peroneal arteries although patient does have some pulses in bilateral lower extremities. Patient is also found to have thrombus in the main portal vein. Patient is on IV heparin at this time. Patient does have extensive history. Patient had diagnosis of spinal similar ataxia with the weakness and bilateral lower extremities which is chronic along with the loss of sensation along with hearing loss at age 10. Patient was diagnosed with neuropathy of 8 cranial nerve. Vascular surgery evaluated the patient. Review of Systems REVIEW OF SYSTEMS: CONSTITUTIONAL: No fever, no malaise, no fatigue. HEENT: No recent visual problems or hearing problems. Denied any sore throat. CARDIOVASCULAR: No chest pain, orthopnea, PND, no palpitations, no syncope. PULMONARY: No shortness of breath, no cough, no hemoptysis. GASTROINTESTINAL: No diarrhea, no nausea, no vomiting, no abdominal pain. NEUROLOGICAL: No headaches, no weakness, no numbness. HEMATOLOGICAL: Denies any bleeding or petechiae. GENITOURINARY: Denies any burning micturition, frequency, or urgency. MUSCULOSKELETAL/RHEUMATOLOGICAL: Denies any joint pain, swelling, or any muscle pain. ENDOCRINE: Denies any polyuria or polydipsia. The rest of the 14-point review of systems is negative. Past Medical History Past Medical History: Hearing Disorder / Deafness Additional Past Medical History / Comment(s): "scoliosis, tremors in the hands", neuropathy. ataxia History of Any Multi-Drug Resistant Organisms: None Reported Additional Past Surgical History / Comment(s): cataract Past Psychological History: No Psychological Hx Reported Smoking Status: Never smoker Past Alcohol Use History: Occasional Past Drug Use History: None Reported Medications and Allergies Home Medications Medication Instructions Recorded Confirmed Type Baclofen [Lioresal] 10 - 20 mg PO QID 06/24/20 06/24/20 History Metoprolol Tartrate [Lopressor] 100 mg PO BID 06/24/20 06/24/20 History Nortriptyline [Pamelor] 50 mg PO DAILY 06/24/20 06/24/20 History Potassium Chloride ER [K-Dur 10] 10 meq PO DAILY 06/24/20 06/24/20 History Primidone [Mysoline] 50 mg PO HS 06/24/20 06/24/20 History Zolpidem Tartrate [Ambien] 2.5 - 5 mg PO HS 06/24/20 06/24/20 History Allergies Allergy/AdvReac Type Severity Reaction Status Date / Time azithromycin [From Zithromax] Allergy Unknown Verified 06/24/20 22:26 cefixime [From Suprax] Allergy Unknown Verified 06/24/20 22:26 Physical Exam Vitals: Vital Signs Temp Pulse Pulse Resp BP BP Pulse Ox 06/25/20 11:45 98.4 F 96 16 117/75 98 06/25/20 08:40 98.2 F 103 H 16 122/82 95 06/25/20 00:41 101 H 18 129/87 93 L 06/24/20 22:00 100 16 121/79 97 06/24/20 20:40 102 H 18 116/72 06/24/20 19:37 98.0 F 85 18 137/85 98 Intake and Output 06/24/20 06/25/20 06/25/20 22:59 06:59 14:59 Intake Total 571.504 720 Balance 571.504 720 Intake: Intake, IV Titration 96.504 Amount Heparin Sod,Pork in 0.45% 96.504 NaCl 25,000 unit In 0.45 % NaCl 1 250ml.bag @ 18 UNITS/KG/HR 14.696 mls/hr IV .[id number] [facility] Rx#: [id number] Oral 475 720 Other: Voiding Method Toilet # Voids 1 # Bowel Movements 0 Weight 81.647 kg 79.4 kg PHYSICAL EXAMINATION: GENERAL: The patient is alert and oriented x3, not in any acute distress. Well developed, well nourished. HEENT: Pupils are round and equally reacting to light. EOMI. No scleral icterus. No conjunctival pallor. Normocephalic, atraumatic. No pharyngeal erythema. No thyromegaly. Patient does have hearing problems which are chronic CARDIOVASCULAR: S1 and S2 present. No murmurs, rubs, or gallops. PULMONARY: Chest is clear to auscultation, no wheezing or crackles. ABDOMEN: Soft, nontender, nondistended, normoactive bowel sounds. No palpable organomegaly. MUSCULOSKELETAL: No joint swelling or deformity. EXTREMITIES: No cyanosis, clubbing. Bilateral pedal edema NEUROLOGICAL: Gross neurological examination did not reveal any focal deficits. SKIN: Patient does have cyanosis of bilateral lower extremities Results CBC & Chem 7: 06/25/20 04:35 06/24/20 20:23 Labs: Abnormal Lab Results - Last 24 Hours (Table) 06/24/20 06/24/20 06/25/20 Range/Units 20:23 20:23 04:35 Neutrophils # 8.0 H (1.3-7.7) k/uL APTT 69.9 H (22.0-30.0) sec Sodium 136 L (137-145) mmol/L 06/25/20 Range/Units 11:05 Neutrophils # (1.3-7.7) k/uL APTT 65.1 H (22.0-30.0) sec Sodium (137-145) mmol/L Assessment and Plan Plan: -Bilateral arterial insufficiency: Patient will be continued on IV heparin, v ascular surgery evaluated the patient. Etiology of this bilateral occlusion is not clear appears to have some genetic disorder. 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
[2020-06-25] MEDS: BACLOFEN 10 MG TAB PO SCH ×2 (14:51→21:02)
[2020-06-25] MEDS: POTASSIUM CHLORIDE ER 10 MEQ TAB.ER.PRT PO SCH (14:52)
[2020-06-25] MEDS: NORTRIPTYLINE 25 MG CAP PO SCH (14:52)
[2020-06-25] MEDS: METOPROLOL TARTRATE 50 MG TAB PO SCH (14:52)
[2020-06-25] MEDS: HEPARIN SOD,PORK IN 0.45% NACL 25,000 UNIT in 0.45% NACL 1 250ML.BAG IV SCH (15:54)
[2020-06-25] MEDS: polyethylene glycoL 3350 17 GM POWD.PACK PO SCH (15:57)
--- NOTE | 2020-06-25 17:18 | ECHOF ---
Referral Reason:popliteal occlusions MEASUREMENTS -------- HEIGHT: 165.1 cm WEIGHT: 79.4 kg BP: 129/87 RVIDd: 2.0 cm (< 3.3) IVSd: 1.1 cm (0.6 - 1.1) LVIDd: 4.3 cm (3.9 - 5.3) LVPWd: 1.3 cm (0.6 - 1.1) IVSs: 1.8 cm LVIDs: 1.9 cm LVPWs: 1.6 cm LAESV Index (A-L): 9.66 ml/m Ao Diam: 2.9 cm (2.0 - 3.7) AV Cusp: 2.0 cm (1.5 - 2.6) LA Diam: 3.4 cm (2.7 - 3.8) MV EXCURSION: 16.312 mm (> 18.000) MV EF SLOPE: 147 mm/s (70 - 150) EPSS: 0.9 cm MV E Mich: 0.59 m/s MV DecT: 156 ms MV A Mich: 0.57 m/s MV E/A Ratio: 1.05 RAP: 5.00 mmHg RVSP: 9.56 mmHg FINDINGS -------- This was a technically difficult study with suboptimal views. The left ventricular size is normal. Left ventricular wall thickness is normal. Overall left vent ricular systolic function is low-normal with, an EF between 50 - 55 %. The diastolic filling patter n is normal for the age of the patient 7.06. The right ventricle is normal in size. The left atrial size is normal. Normal LA size by volume 22+/-6 ml/m2. The right atrial size is normal. Lumason used The aortic valve is trileaflet and appears structurally normal. The mitral valve is normal. The mitral valve leaflets are mildly thickened. There is trace mitral regurgitation. The tricuspid valve appears structurally normal. Trace tricuspid regurgitation present. Right rosana tricular systolic pressure is normal at < 35 mmHg. There is no pulmonic regurgitation present. The aortic root size is normal. IVC Not well visulized. There is no pericardial effusion. CONCLUSIONS -------- 1. The left ventricular size is normal. 2. Left ventricular wall thickness is normal. 3. Overall left ventricular systolic function is low-normal with, an EF between 50 - 55 %. 4. The diastolic filling pattern is normal for the age of the patient 7.06 5. The mitral valve leaflets are mildly thickened. 6. Trace tricuspid regurgitation present. 7. There is no pericardial effusion. RESPIRATORY SUPERVISOR: Kayy Denny RDCS
--- NOTE | 2020-06-25 17:58 | P.CONS ---
History of Present Illness - Reason for Consult Consult date: 06/25/20 bilateral lower extremity arterial occlusion, possible portal vein thrombus - History of Present Illness patient is a 30-year-old white male with multiple medical problems. 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 He also has decreased sensation and coldness of his legs below the knee for the past 3-4 years with difficulty in walking. His mother brought him to the hospital, as he was developing blackish discoloration of the toes of both feet over the past few days. There does not appear to have been any major pain associated with those symptoms. On evaluation, with CT angiogram, the patient was found to have absent flow in bilateral tibial and peroneal arteries extending to the proximal feet. There was no evidence of atherosclerosis, or stenosis in the visualized blood vessels otherwise. There was possibility of a thrombus in the portal vein, though it is possible that this could represent an artifact. History was obtained from the mother, who was at the bedside. The patient has never had prior history of arterial or venous thrombosis. No history of abdominal pain, or shortness of breath. no recent hospitalizations, or hormonal supplementation /steroid use. There is no family history suggestive of clotting disorder. Patient is a nonsmoker. Review of Systems Constitutional: Reports weakness Eyes: denies blurred vision, denies pain Ears: bilateral: decreased hearing, deny: ear discharge, earache, tinnitus Ears, nose, mouth and throat: Denies headache, Denies sore throat Cardiovascular: Reports as per HPI Respiratory: Denies cough Gastrointestinal: Denies abdominal pain, Denies diarrhea, Denies nausea, Denies vomiting Genitourinary: Reports as per HPI Musculoskeletal: Reports as per HPI, Reports gait dysfunction, Reports leg numbness/tingling Integumentary: Reports as per HPI, Reports color changes Neurological: Reports as per HPI, Reports balance difficulties, Reports hearing difficulties, Reports lack of coordination, Reports numbness, Reports weakness Psychiatric: Denies anxiety, Denies depression Endocrine: Denies fatigue, Denies weight change Hematologic/Lymphatic: Reports as per HPI Past Medical History Past Medical History: Hearing Disorder / Deafness Additional Past Medical History / Comment(s): "scoliosis, tremors in the hands", neuropathy. ataxia History of Any Multi-Drug Resistant Organisms: None Reported Additional Past Surgical History / Comment(s): cataract Past Psychological History: No Psychological Hx Reported Smoking Status: Never smoker Past Alcohol Use History: Occasional Past Drug Use History: None Reported Medications and Allergies Home Medications Medication Instructions Recorded Confirmed Type Baclofen [Lioresal] 10 - 20 mg PO QID 06/24/20 06/24/20 History Metoprolol Tartrate [Lopressor] 100 mg PO BID 06/24/20 06/24/20 History Nortriptyline [Pamelor] 50 mg PO DAILY 06/24/20 06/24/20 History Potassium Chloride ER [K-Dur 10] 10 meq PO DAILY 06/24/20 06/24/20 History Primidone [Mysoline] 50 mg PO HS 06/24/20 06/24/20 History Zolpidem Tartrate [Ambien] 2.5 - 5 mg PO HS 06/24/20 06/24/20 History Allergies Allergy/AdvReac Type Severity Reaction Status Date / Time azithromycin [From Zithromax] Allergy Unknown Verified 06/24/20 22:26 cefixime [From Suprax] Allergy Unknown Verified 06/24/20 22:26 Physical Exam Vitals: Vital Signs Temp Pulse Pulse Resp BP BP Pulse Ox 06/25/20 16:00 98.4 F 100 16 119/80 98 06/25/20 11:45 98.4 F 96 16 117/75 98 06/25/20 08:40 98.2 F 103 H 16 122/82 95 06/25/20 00:41 101 H 18 129/87 93 L 06/24/20 22:00 100 16 121/79 97 06/24/20 20:40 102 H 18 116/72 06/24/20 19:37 98.0 F 85 18 137/85 98 Intake and Output 06/25/20 06/25/20 06/25/20 06:59 14:59 22:59 Intake Total 571.504 720 135.866 Balance 571.504 720 135.866 Intake: Intake, IV Titration 96.504 135.866 Amount Heparin Sod,Pork in 0.45% 96.504 135.866 NaCl 25,000 unit In 0.45 % NaCl 1 250ml.bag @ 18 UNITS/KG/HR 14.696 mls/hr IV .Q17H1M [facility] Rx#: [id number] Oral 475 720 Other: Voiding Method Toilet # Voids 1 # Bowel Movements 0 Weight 79.4 kg - Constitutional General appearance: no acute distress - EENT Eyes: EOMI, PERRLA ENT: hard of hearing, normal oropharynx - Neck Neck: no lymphadenopathy Thyroid: bilateral: normal size - Respiratory Respiratory: bilateral: CTA - Cardiovascular Rhythm: regular Heart sounds: normal: S1, S2 - Gastrointestinal General gastrointestinal: normal bowel sounds, soft - Integumentary currently lower extremities including feet and toes are pink, warm and appear well perfused. - Neurologic Neurologic: CNII-XII intact - Musculoskeletal bilateral lower extremity weakness with contractures at ankle upper extremity strength normal - Psychiatric orientation difficult to assess as patient is nonverbal. Communicates with mother in sign language and comprehension appears to be quite adequate. Results CBC & Chem 7: 06/25/20 04:35 06/24/20 20:23 Labs: Abnormal Lab Results - Last 24 Hours (Table) 06/24/20 06/24/20 06/25/20 Range/Units 20:23 20:23 04:35 Neutrophils # 8.0 H (1.3-7.7) k/uL APTT 69.9 H (22.0-30.0) sec Sodium 136 L (137-145) mmol/L 06/25/20 Range/Units 11:05 Neutrophils # (1.3-7.7) k/uL APTT 65.1 H (22.0-30.0) sec Sodium (137-145) mmol/L Comments: CT angiogram report reviewed Echocardiogram report reviewed Chest x-ray: report reviewed Assessment and Plan (1) Peripheral vascular occlusive disease Narrative/Plan: this would appear to be acute. The patient previously did have diminished sensation, weakness and coldness of his lower extremity is below the knee, but that is more likely to have been due to his due to his underlying neuro degenerative condition. he does not have any underlying major risk factors for arterial thrombosis/embolization. angiogram shows no evidence of underlying stenosis or atherosclerosis. - The patient has been assessed by vascular surgery. Agree with anticoagulation at this time. Patient has had improvement since starting anticoagulation. I would also recommend adding a baby aspirin. - Given lack of underlying vascular disease, it would be reasonable to consider possible hypercoagulable states, though first episode of major arterial thrombosis from a hypercoagulable condition is overall uncommon. I will order antiphospholipid antibodies while inpatient. If positive this would affect man agement, as the patient would be recommended to be treated with warfarin long- term rather than one of the DOACs. It was discussed with the family, and the admitting service, that lupus anticoagulant would typically be expected to be positive while on anticoagulation. However the other antibodies should not be affected by the same. Therefore if testing is negative, or if only lupus anticoagulant is positive, for now it would be reasonable to treat with NOACs plus aspirin. - if the above-mentioned testing is negative, additional hypercoagulable workup as an outpatient - It was also discussed in detail with the admitting service and it would be reasonable to workup the patient for possible embolic source. Echocardiogram was negative. It would be reasonable, in my opinion to consider her SUSAN to comprehensively rule out valvular vegetation and/or other cardiac source of emboli Current Visit: Yes Status: Acute Code(s): I73.9 - PERIPHERAL VASCULAR DISEASE, UNSPECIFIED SNOMED Code(s): 059575603 (2) Portal vein thrombosis Narrative/Plan: this is not certain at this time. Angiogram noted this incidentally in stated that the finding could be artifactual. Dedicated CT of the abdomen will be ordered with contrast. I will also check venous Dopplers of the lower extremities. If the patient is establish to have both venous and arterial thrombosis, then that would make a primary hypercoagulable state more likely. In addition in that situation it would also be reasonable to do a bubble study to rule out a PFO. Current Visit: Yes Status: Acute Code(s): I81 - PORTAL VEIN THROMBOSIS SNOMED Code(s): 40684977 Plan: defer to the intake service for management of his other medical issues. Case discussed in detail with them.
--- NOTE | 2020-06-25 19:53 | US ---
EXAMINATION TYPE: US venous doppler duplex LE DATE OF EXAM: 06/25/2020 6:00 PM COMPARISON: US 2018 CLINICAL HISTORY: venous thrombosis, lower extremity pain. Bilateral leg pain, swelling and redness SIDE PERFORMED: Bilateral TECHNIQUE: The lower extremity deep venous system is examined utilizing real time linear array sonog fariha with graded compression, doppler sonography and color-flow sonography. VESSELS IMAGED: Common Femoral Vein Deep Femoral Vein Greater Saphenous Vein * Femoral Vein Popliteal Vein Small Saphenous Vein * Proximal Calf Veins (* superficial vessels) Right Leg: Appears negative for DVT Left Leg: Appears negative for DVT IMPRESSION: No evidence of bilateral lower extremity DVT.
[2020-06-25] MEDS ORDERED: ZOLPIDEM 5 MG TAB PO SCH (21:00)
[2020-06-25] MEDS ORDERED: PRIMIDONE 50 MG TAB PO SCH (21:00)
[2020-06-26 04:19] LABS: Cardiolipin Ab IgG Interp NEGATIVE (NEGATIVE); Cardiolipin Ab IgM Interp NEGATIVE (NEGATIVE); Cardiolipin IgA Antibody <0.5 U/mL; Cardiolipin IgM Antibody <0.2 U/mL
[2020-06-26 07:38] LABS: Basophils % (A) 1 %; Eosinophils # (A) 0.2 k/uL (0-0.7); Eosinophils % (A) 3 %; HCT 44.3 % (39.0-53.0); HGB 14.7 gm/dL (13.0-17.5); Lymphocytes # (A) 1.3 k/uL (1.0-4.8); Lymphocytes % (A) 16 %; MCH 29.3 pg (25.0-35.0); MCHC 33.1 g/dL (31.0-37.0); MCV 88.4 fL (80.0-100.0); Mean Platelet Volume 6.9; Monocytes # (A) 0.5 k/uL (0-1.0); Monocytes % (A) 6 %; Neutrophils % (A) 74 %; Platelet Count 238 k/uL (150-450); RBC 5.01 m/uL (4.30-5.90); RDW 12.7 % (11.5-15.5); WBC 8.2 k/uL (3.8-10.6)
[2020-06-26 09:03] VITALS: RESP 18; TEMP 98.1
[2020-06-26] MEDS: HEPARIN SOD,PORK IN 0.45% NACL 25,000 UNIT in 0.45% NACL 1 250ML.BAG IV SCH (09:04)
[2020-06-26] MEDS: BACLOFEN 10 MG TAB PO SCH ×2 (09:05→14:19)
[2020-06-26] MEDS: METOPROLOL TARTRATE 50 MG TAB PO SCH (09:05)
[2020-06-26] MEDS: polyethylene glycoL 3350 17 GM POWD.PACK PO SCH (09:06)
[2020-06-26] MEDS: POTASSIUM CHLORIDE ER 10 MEQ TAB.ER.PRT PO SCH (09:06)
--- NOTE | 2020-06-26 09:07 | US ---
EXAMINATION TYPE: US portal vein DATE OF EXAM: 06/26/2020 COMPARISON: CT 06/24/2020 CLINICAL HISTORY: poss portal vein thrombosis. Abnormal CT. EXAM MEASUREMENTS: Liver Length: 13.3 cm Gallbladder Wall: 0.3 cm CBD: 0.5 cm Right Kidney: 11.1 x 6.4 x 4.9 cm ANATOMY: Pancreas: not visualized due to midline bowel gas Liver: Heterogeneous hyperechoic Color flow patency within the portal vein: yes Portal Vein Flow: Hepatopetal Gallbladder: no stones seen Evidence for sonographic Gibbs's sign: No CBD: wnl Right Kidney: wnl Ascites noted? no Pancreas not well seen on images provided but appeared within normal limits on recent CT. Visualized liver is heterogeneously hyperechoic. Suspect possible diffuse fatty infiltration. No right-sided hyd ronephrosis. No biliary dilatation. Patent portal vein with normal monophasic hepatopedal flow. No th rombus identified. The CT findings felt to reflect product of mixed contrast opacified and noncontras t opacified draining veins. No ascites is seen on images saved. Gallbladder unremarkable. IMPRESSION: Patent nondilated portal vein with normal hepatopedal flow
[2020-06-26] MEDS: NORTRIPTYLINE 25 MG CAP PO SCH (09:15)
[2020-06-26] MEDS ORDERED: SENNOSIDES 8.6 MG TAB PO PRN (11:16)
[2020-06-26 11:51] VITALS: BP 104/62; PULSE 104
--- NOTE | 2020-06-26 13:23 | P.DS ---
Providers Date of admission: 06/24/20 23:18 Attending physician: Miguel Angel Trejo Consults: 06/25/20 00:09 Consult Physician Urgent Consulting Provider: Bong Tesfaye Consult Reason/Comments: acute b/l le arterial insuff Do you want consulting provider notified?: Already Contacted 06/25/20 15:14 Consult Physician Routine Consulting Provider: Jorje Flores Consult Reason/Comments: portal vein thrombosis, has spinal cerebellar ataxia Do you want consulting provider notified?: Yes Primary care physician: Nish Aviles [facility] Course: 30-year-old pleasant male came in with the complaints of the colon time lower extremities with cyanosis of bilateral lower extremities. Patient had a CT angiogram for the lower extremities thoracic and abdominal CT angiogram with runoff found to have occlusion of the tibial and peroneal arteries although patient does have some pulses in bilateral lower extremities. Patient is also found to have thrombus in the main portal vein. Patient is on IV heparin at this time. Patient does have extensive history. Patient had diagnosis of spinal similar ataxia with the weakness and bilateral lower extremities which is chronic along with the loss of sensation along with hearing loss at age 10. Patient was diagnosed with neuropathy of 8 cranial nerve. Vascular surgery evaluated the patient. 06/26/2020 Portal vein ultrasound was in fact negative for Portal vein thrombosis or occlusion. Lower extremities are no longer cyanotic. Patient's family was concerned that patient may be constipated, he did have a bowel movement yesterday, his abdomen is nondistended Nontender. Review of Systems: CONSTITUTIONAL: negative RESPIRATORY: negative CARDIAC: negative MUSCULOSKELETAL: negative GENITOURINARY: negaitve ABDOMEN: Negative GENERAL: The patient is alert and oriented x3, not in any acute distress. Well developed, well nourished. HEENT: Pupils are round and equally reacting to light. EOMI. No scleral icterus. No conjunctival pallor. Normocephalic, atraumatic. No pharyngeal erythema. No thyromegaly. Patient does have hearing problems which are chronic CARDIOVASCULAR: S1 and S2 present. No murmurs, rubs, or gallops. PULMONARY: Chest is clear to auscultation, no wheezing or crackles. ABDOMEN: Soft, mildly distended, normoactive bowel sounds. No palpable organomegaly. MUSCULOSKELETAL: No joint swelling or deformity. EXTREMITIES: No cyanosis, clubbing. Bilateral pedal edema NEUROLOGICAL: Gross neurological examination did not reveal any focal deficits. SKIN: Cyanosis of lower extremities resolved, Plan: -Bilateral arterial insufficiency: Etiology unclear, seen by vascular surgery. On IV heparin during hospitalization, venous Doppler of lower extremities negative. No evidence of valvular vegetations on 2-D echocardiogram. Patient will continue anticoagulation with Eliquis upon discharge. -Portal vein thrombosis ruled out: CT was initially suggestive of thrombosis however ultrasound is negative. 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 Patient Condition at Discharge: Serious Plan - Discharge Summary Discharge Rx Participant: Yes New Discharge Prescriptions: New Apixaban [Eliquis Starter Pack (for VTE)] 0 mg PO DIRECTED 30 Days #1 pack No Action Potassium Chloride ER [K-Dur 10] 10 meq PO DAILY Metoprolol Tartrate [Lopressor] 100 mg PO BID Baclofen [Lioresal] 10 - 20 mg PO QID Zolpidem Tartrate [Ambien] 2.5 - 5 mg PO HS Primidone [Mysoline] 50 mg PO HS Nortriptyline [Pamelor] 50 mg PO DAILY Discharge Medication List Baclofen [Lioresal] 10 - 20 mg PO QID 06/24/20 [History] Metoprolol Tartrate [Lopressor] 100 mg PO BID 06/24/20 [History] Nortriptyline [Pamelor] 50 mg PO DAILY 06/24/20 [History] Potassium Chloride ER [K-Dur 10] 10 meq PO DAILY 06/24/20 [History] Primidone [Mysoline] 50 mg PO HS 06/24/20 [History] Zolpidem Tartrate [Ambien] 2.5 - 5 mg PO HS 06/24/20 [History] Apixaban [Eliquis Starter Pack (for VTE)] 0 mg PO DIRECTED 30 Days #1 pack 06/26/20 [Rx] Follow up Appointment(s)/Referral(s): Jarad Mock MD [Primary Care Provider] - 1-2 days
[2020-06-28 14:19] LABS: APTT >180 Sec(s) (<43); APTT 1:1 Mix 90 Sec(s) (<43); Dilute Russell Viper Venom 43 Sec(s) (<44); Hexagonal Phase Neutralization Negative (Negative)
== END 2020-06-26 14:37 | disposition home or self-care (01) ==
LOC: EC 19:32 → INTOOBSV 23:18 → 3SCARD 23:18 → UNDODISIN 06-26 14:37
PROVIDERS: ADMIT Hospitalist; ATTEND Hospitalist
DX: I70.203 Unspecified atherosclerosis of native arteries of extremities, bilateral legs (principal); H91.90 Unspecified hearing loss, unspecified ear; R25.1 Tremor, unspecified; G62.9 Polyneuropathy, unspecified; K59.00 Constipation, unspecified; G11.9 Hereditary ataxia, unspecified; I10 Essential (primary) hypertension; G89.29 Other chronic pain; G52.8 Disorders of other specified cranial nerves; M41.9 Scoliosis, unspecified; Z79.899 Other long term (current) drug therapy; Z88.1 Allergy status to other antibiotic agents; Z20.822 Contact with and (suspected) exposure to COVID-19
CPT/HCPCS: 96366 ×3; 96376; 96365; 99285; 36415 ×2; 93005; 86146; 83880; 80053; 83735; 84484; 85025 ×3; 85610; 85730 ×3; 85613; 85732; 85598; 86147; 87635; 71046; 93976; 93970; 75635; 71275; G0378 ×3; C8929; J1644 ×4; Q9950; Q9967; 93306

== ENCOUNTER → 2021-01-19 | Outpatient (CLI) | payer OTHER ==
--- NOTE | 2021-01-20 08:00 | NM ---
EXAMINATION TYPE: NM DatScan Brain SPECT DATE OF EXAM: 01/19/2021 COMPARISON: 02/22/2016 HISTORY: Tremor TECHNIQUE: 10 drops of Lugol's solution was administered 1 hour prior to injection as a thyroid bloc sridvei agent. After the administration of 4.43 mCi I-123 Ioflupane DaTscan. Images obtained 3 hours p ost injection. SPECT images of the brain were acquired with axial and coronal reconstructions. FINDINGS: The axial SPECT images demonstrate increased background activity and symmetric activity wit hin the bilateral striata. IMPRESSION: Normal bilateral uptake.
== END | disposition home or self-care (01) ==
LOC: RADNMMAIN 10:49
PROVIDERS: ATTEND Psychiatry & Neurology Neurology
DX: R25.1 Tremor, unspecified (principal)
CPT/HCPCS: 78803; A9584

== ENCOUNTER 2021-02-14 21:10 | Emergency (ER) | payer OTHER ==
[2021-02-14 22:26] VITALS: BP 109/65; PULSE 85; RESP 18; TEMP 98.7
--- NOTE | 2021-02-14 23:03 | XR ---
EXAMINATION TYPE: XR foot complete LT DATE OF EXAM: 02/14/2021 COMPARISON: NONE HISTORY: Foot pain. Fell from the wheelchair. TECHNIQUE: 3 views FINDINGS: Metatarsals are intact. I see no fracture nor dislocation. Toes appear intact. Joint spaces are fairly normal. IMPRESSION: Negative left foot exam. No fracture.
--- NOTE | 2021-02-14 23:04 | XR ---
EXAMINATION TYPE: XR ankle complete LT DATE OF EXAM: 02/14/2021 COMPARISON: NONE HISTORY: Pain. TECHNIQUE: 3 views FINDINGS: Ankle mortise is anatomic. I see no fracture nor dislocation. Joint spaces are fairly yessenia l. IMPRESSION: Negative left ankle exam.
[2021-02-14] MEDS ORDERED: IBUPROFEN 600 MG TAB PO STA (23:12)
--- NOTE | 2021-02-14 23:18 | ED ---
Lower Extremity Injury HPI - General Chief Complaint: Extremity Injury, Lower Stated Complaint: Fall,Left Hip Injury Time Seen by Provider: 02/14/21 22:47 Source: patient, family, RN notes reviewed Mode of arrival: wheelchair Limitations: no limitations - History of Present Illness Initial Comments: This is a 30-year-old male that presents to the emergency room with family member complaining of left ankle pain and swelling. Family states they're transferring him from the wheelchair to the vehicle on Sunday and he somehow twisted his ankle. Patient has not been able to bear any weight. He is wheelchair bound from scoliosis with progressive weakness. He sees Dr. Mazariegos for his ataxia and neuropathy. MD Complaint: ankle injury (Left) -: days(s) (3) Injury: Ankle: Left Type of Injury: unknown Place: street/outdoors Severity scale (1-10): 0 Improves With: immobilization Worsens With: movement Context: other (During transfer from wheelchair to be occult) - Related Data Home Medications Medication Instructions Recorded Confirmed Baclofen [Lioresal] 10 - 20 mg PO QID 06/24/20 06/24/20 Metoprolol Tartrate [Lopressor] 100 mg PO BID 06/24/20 06/24/20 Nortriptyline [Pamelor] 50 mg PO DAILY 06/24/20 06/24/20 Potassium Chloride ER [K-Dur 10] 10 meq PO DAILY 06/24/20 06/24/20 Primidone [Mysoline] 50 mg PO HS 06/24/20 06/24/20 Zolpidem Tartrate [Ambien] 2.5 - 5 mg PO HS 06/24/20 06/24/20 Previous Rx's Medication Instructions Recorded Apixaban [Eliquis Starter Pack 0 mg PO DIRECTED 30 Days #1 pack 06/26/20 (for VTE)] Aspirin 81 mg PO DAILY #30 chewable 06/26/20 Ibuprofen [Motrin] 600 mg PO Q8HR PRN #30 tab 02/14/21 Allergies Allergy/AdvReac Type Severity Reaction Status Date / Time azithromycin [From Zithromax] Allergy Unknown Verified 02/14/21 22:26 cefixime [From Suprax] Allergy Unknown Verified 02/14/21 22:26 Review of Systems ROS Statement: Those systems with pertinent positive or pertinent negative responses have been documented in the HPI. ROS Other: All systems not noted in ROS Statement are negative. Past Medical History Past Medical History: Hearing Disorder / Deafness Additional Past Medical History / Comment(s): "scoliosis, tremors in the hands", neuropathy. ataxia History of Any Multi-Drug Resistant Organisms: None Reported Additional Past Surgical History / Comment(s): cataract Past Psychological History: No Psychological Hx Reported Smoking Status: Never smoker Past Alcohol Use History: Occasional Past Drug Use History: None Reported General Exam Limitations: language barrier (Patient is deaf), physical limitation (Wheelchair bound) General appearance: alert, in no apparent distress Head exam: Present: atraumatic, normocephalic, normal inspection Eye exam: Present: normal appearance, EOMI ENT exam: Present: normal exam, normal oropharynx, mucous membranes moist Respiratory exam: Present: normal lung sounds bilaterally. Absent: respiratory distress, wheezes, rales, rhonchi, stridor Cardiovascular Exam: Present: regular rate, normal rhythm, normal heart sounds. Absent: systolic murmur, diastolic murmur, rubs, gallop, clicks GI/Abdominal exam: Present: soft, normal bowel sounds. Absent: distended, tenderness, guarding, rebound, rigid Left Ankle exam: Present: tenderness, swelling (Left lateral malleolus), ecchymosis. Absent: abrasion, laceration, deformity Foot/Toe exam: Present: dislocation (Capillary refill is slow, approximately 4 seconds) Neurological exam: Present: alert Psychiatric exam: Present: normal affect, normal mood Skin exam: Present: warm, dry Course Vital Signs 02/14/21 22:19 Temperature 98.7 F Pulse Rate 85 Respiratory 18 Rate Blood Pressure 109/65 O2 Sat by Pulse 95 Oximetry Medical Decision Making - Medical Decision Making X-ray of the left ankle and foot is negative for fracture dislocation. Patient was placed in an ankle stirrup directed to take Motrin, rest, ice and elevate at home. Follow-up with primary care doctor within the next week. Return to the emergency room with any new or worsening symptoms. Disposition Clinical Impression: Ankle pain, left Disposition: HOME SELF-CARE Condition: Good Instructions (If sedation given, give patient instructions): Ankle Sprain (ED) Additional Instructions: Rest, ice, elevate while at home. Take 600 mg of Motrin every 8 hours for the next 3 days. Wear the stirrup splint to the left ankle for the next week. Follow-up with your primary care doctor in 1 week. Return to the emergency room with any worsening symptoms. Prescriptions: Ibuprofen [Motrin] 600 mg PO Q8HR PRN #30 tab PRN Reason: Pain Is patient prescribed a controlled substance at d/c from ED?: No Referrals: Jarad Mock MD [Primary Care Provider] - 1-2 days Time of Disposition: 23:21
== END 2021-02-14 23:45 | disposition home or self-care (01) ==
LOC: EC 21:10
DX: S90.02XA Contusion of left ankle, initial encounter (principal); Z79.82 Long term (current) use of aspirin; Z79.01 Long term (current) use of anticoagulants; Z79.1 Long term (current) use of non-steroidal anti-inflammatories (NSAID); Z79.899 Other long term (current) drug therapy; Z88.1 Allergy status to other antibiotic agents; X50.1XXA Overexertion from prolonged static or awkward postures, initial encounter
CPT/HCPCS: 29515; 99283

== ENCOUNTER → 2021-08-15 | Outpatient (CLI) | payer OTHER ==
--- NOTE | 2021-08-15 13:36 | US ---
EXAMINATION TYPE: US kidneys/renal and bladder DATE OF EXAM: 08/15/2021 COMPARISON: US CLINICAL HISTORY: R31.0 GROSS HEMATURIA. Gross hematuria EXAM MEASUREMENTS: Right Kidney: 10.8 x 4.2 x 4.5 cm Left Kidney: 10.9 x 4.6 x 4.8 cm Pt non-verbal, scanned in wheelchair Right Kidney: wnl Left Kidney: wnl, lower pole gassed out Bladder: Pt unable to void bladder to obtain post void volume, debris vs. mass at dependant portion o f bladder Bilateral Jets seen: No There is no evidence for hydronephrosis at this point in time. No nephrolithiasis is seen. No francia s are identified. The urinary bladder is anechoic. Bilateral ureteral jets are seen. IMPRESSION: No significant abnormality on this limited study.
--- NOTE | 2021-08-15 15:23 | XR ---
KUB HISTORY: Gross hematuria Frontal KUB on 2 images There is no pathologic calcification. No evident bowel obstruction or pneumoperitoneum. Bone minerali zation is normal. There is a spinal curvature. IMPRESSION: No acute abnormality.
== END | disposition home or self-care (01) ==
LOC: RADUSWWP 13:00
PROVIDERS: ATTEND Urology
DX: R31.0 Gross hematuria (principal)
CPT/HCPCS: 74018; 76770

== ENCOUNTER 2021-10-20 09:00 | Emergency (ER) | payer OTHER ==
[2021-10-20 09:13] LABS: Glucose,Whole Blood 88 mg/dL (70-110)
[2021-10-20] MEDS ORDERED: SODIUM CHLORIDE 0.9% 1,000 ML IV ONE (09:15)
[2021-10-20] MEDS ORDERED: LORazepam 2 MG/ML INJ IV STA (09:27)
--- NOTE | 2021-10-20 09:28 | ED ---
Altered Mental Status HPI - General Chief Complaint: Altered Mental Status Stated Complaint: AMS Time Seen by Provider: 10/20/21 09:05 Source: family, EMS Mode of arrival: EMS - History of Present Illness Initial Comments: The patient is a 31-year-old male with past history of cerebellar ataxia who presents to the emergency room with altered mental status. EMS and family provi de the history. He is confined to a wheelchair. Is normally alert and oriented 4 at baseline and is able to transfer himself. Patient was found on the bathroom floor unresponsive this morning. He had notable blood coming from his groin. Additional blood noted on the patient's face. It appears that the patient had thrown up. The patient has not had any recent illnesses. Unknown at the patient sustained any trauma. The remainder of the HPI is limited because the patient's current status - Related Data Home Medications Medication Instructions Recorded Confirmed Baclofen [Lioresal] 20 mg PO QID 06/24/20 10/20/21 Metoprolol Tartrate [Lopressor] 100 mg PO BID 06/24/20 10/20/21 Primidone [Mysoline] 50 mg PO HS 06/24/20 10/20/21 Apixaban [Eliquis] 5 mg PO BID 10/20/21 10/20/21 Bethanechol Chloride 50 mg PO TID 10/20/21 10/20/21 Cyanocobalamin (Vitamin B-12) 1,000 mcg PO DAILY 10/20/21 10/20/21 [Vitamin B-12] Escitalopram [Lexapro] 10 mg PO DAILY 10/20/21 10/20/21 Lacosamide [Vimpat] 100 mg PO BID 10/20/21 10/20/21 Tamsulosin [Flomax] 0.4 mg PO DAILY 10/20/21 10/20/21 diazePAM [Valium] 5 mg PO BID 10/20/21 10/20/21 Previous Rx's Medication Instructions Recorded Aspirin 81 mg PO DAILY #30 chewable 06/26/20 Allergies Allergy/AdvReac Type Severity Reaction Status Date / Time azithromycin [From Zithromax] Allergy Unknown Verified 10/20/21 13:08 cefixime [From Suprax] Allergy Unknown Verified 10/20/21 13:08 Review of Systems ROS Statement: Those systems with pertinent positive or pertinent negative responses have been documented in the HPI. ROS Other: All systems not noted in ROS Statement are negative. Past Medical History Past Medical History: Hearing Disorder / Deafness Additional Past Medical History / Comment(s): "scoliosis, tremors in the hands", neuropathy. ataxia History of Any Multi-Drug Resistant Organisms: None Reported Additional Past Surgical History / Comment(s): cataract Past Psychological History: No Psychological Hx Reported Smoking Status: Never smoker Past Alcohol Use History: Occasional Past Drug Use History: None Reported General Exam Limitations: altered mental status General appearance: obtunded, in distress Head exam: Present: atraumatic, normocephalic Eye exam: Present: PERRL ENT exam: Present: mucous membranes dry, other (blood dried in nares) Respiratory exam: Present: respiratory distress, rales, accessory muscle use, decreased breath sounds, other (crackles all lung fairchild) Cardiovascular Exam: Present: normal rhythm, bradycardia GI/Abdominal exam: Present: soft, normal bowel sounds. Absent: distended, tenderness, guarding, rebound, rigid Rectal exam: Present: bloody stool Extremities exam: Present: other (atrophy lower extremities) Neurological exam: Present: altered Skin exam: Present: diaphoretic, pallor Course Vital Signs 10/20/21 10/20/21 10/20/21 09:05 09:37 10:30 Pulse Rate 35 L 58 L 48 L Respiratory 16 16 20 Rate Blood Pressure 97/77 119/62 94/81 O2 Sat by Pulse 63 L 70 L 65 L Oximetry 10/20/21 11:30 Pulse Rate 48 L Respiratory 20 Rate Blood Pressure 85/31 O2 Sat by Pulse 70 L Oximetry - Reevaluation(s) Reevaluation #1: 10/20/21 09:27 Patient is DNR/DNI at this time per mother Medical Decision Making - Medical Decision Making Upon arrival patient is pomptly placed in a trauma 2. Physical exam is performed. Patient does have diffuse rectal bleeding. Patient has agonal respirations. Family does arrive to bedside and CODE STATUS is discussed. As the patient does have a terminal illness they do not feel that the patient would be appropriate for intubation at this time. Patient additionally to not receive CPR. He is placed on a nasal cannula. Laboratory studies are obtained as this is okay with the patient's family. Chest x-rays performed. Laboratory studies are reviewed and demonstrates a potassium of 2.7. Crit and 1.9. Urinalysis grossly infected. Occult is positive. Chest x-ray demonstrates patchy left upper lobe and perihilar infiltrates. Head and cervical spine demonstrates no acute fracture dislocation. No acute intracranial hemorrhage or mass effect. Patient was originally initiated on antibiotics and potassium replacement. I did call and speak with the hospice nurse. They do come to the emergency room if with the patient. Recommended that I admit the patient medically with a hospice consult. Family does sign on the hospice. I spoke with Dr. irby who will admit the patient. Patient is pending a bed on the floor with impending worsening of his condition and anticipated expiration - Lab Data Result diagrams: 10/20/21 09:28 10/20/21 09:28 Lab Results 10/20/21 10/20/21 10/20/21 Range/Units 09:11 09:15 09:28 WBC 13.9 H (3.8-10.6) k/uL RBC 3.99 L (4.30-5.90) m/uL Hgb 12.3 L (13.0-17.5) gm/dL Hct 38.6 L (39.0-53.0) % MCV 96.8 (80.0-100.0) fL MCH 30.7 (25.0-35.0) pg MCHC 31.7 (31.0-37.0) g/dL RDW 13.2 (11.5-15.5) % Plt Count 201 (150-450) k/uL MPV 8.6 Neutrophils % 86 % Lymphocytes % 7 % Monocytes % 6 % Eosinophils % 0 % Basophils % 0 % Neutrophils # 12.0 H (1.3-7.7) k/uL Lymphocytes # 0.9 L (1.0-4.8) k/uL Monocytes # 0.8 (0-1.0) k/uL Eosinophils # 0.0 (0-0.7) k/uL Basophils # 0.1 (0-0.2) k/uL Hypochromasia Slight PT (9.0-12.0) sec INR (<1.2) APTT (22.0-30.0) sec VBG pH (7.31-7.41) VBG pCO2 (37-51) mmHg VBG HCO3 (24-28) mmol/L Sodium (137-145) mmol/L Potassium (3.5-5.1) mmol/L Chloride (98-107) mmol/L Carbon Dioxide (22-30) mmol/L Anion Gap mmol/L BUN (9-20) mg/dL Creatinine (0.66-1.25) mg/dL Est GFR (CKD-EPI)AfAm (>60 ml/min/1.73 sqM) Est GFR (CKD-EPI)NonAf (>60 ml/min/1.73 sqM) Glucose (74-99) mg/dL POC Glucose (mg/dL) 88 (70-110) mg/dL POC Glu Armament Installer ID Alvaroterly, Shabana Calcium (8.4-10.2) mg/dL Total Bilirubin (0.2-1.3) mg/dL AST (17-59) U/L ALT (4-49) U/L Alkaline Phosphatase (38-126) U/L Ammonia (<30) umol/L Creatine Kinase (55-170) U/L Troponin I (0.000-0.034) ng/mL Total Protein (6.3-8.2) g/dL Albumin (3.5-5.0) g/dL Urine Color Urine Appearance (Clear) Urine RBC (0-5) /hpf Urine WBC (0-5) /hpf Urine Bacteria (None) /hpf Hyaline Casts (0-2) /lpf Urine Mucus (None) /hpf Stool Occult Blood (Negative) Salicylates mg/dL Urine Opiates Screen (NotDetected) Ur Oxycodone Screen (NotDetected) Urine Methadone Screen (NotDetected) Ur Propoxyphene Screen (NotDetected) Acetaminophen ug/mL Ur Barbiturates Screen (NotDetected) U Tricyclic Antidepress (NotDetected) Ur Phencyclidine Scrn (NotDetected) Ur Amphetamines Screen (NotDetected) U Methamphetamines Scrn (NotDetected) U Benzodiazepines Scrn (NotDetected) Urine Cocaine Screen (NotDetected) U Marijuana (THC) Screen (NotDetected) Serum Alcohol mg/dL Blood Type Blood Type Confirm A Positive Blood Type Recheck Bld Type Recheck Status Antibody Screen Spec Expiration Date 10/20/21 10/20/21 10/20/21 Range/Units 09:28 09:28 09:28 WBC (3.8-10.6) k/uL RBC (4.30-5.90) m/uL Hgb (13.0-17.5) gm/dL Hct (39.0-53.0) % MCV (80.0-100.0) fL MCH (25.0-35.0) pg MCHC (31.0-37.0) g/dL RDW (11.5-15.5) % Plt Count (150-450) k/uL MPV Neutrophils % % Lymphocytes % % Monocytes % % Eosinophils % % Basophils % % Neutrophils # (1.3-7.7) k/uL Lymphocytes # (1.0-4.8) k/uL Monocytes # (0-1.0) k/uL Eosinophils # (0-0.7) k/uL Basophils # (0-0.2) k/uL Hypochromasia PT 19.3 H (9.0-12.0) sec INR 1.9 H (<1.2) APTT 29.8 (22.0-30.0) sec VBG pH (7.31-7.41) VBG pCO2 (37-51) mmHg VBG HCO3 (24-28) mmol/L Sodium 143 (137-145) mmol/L Potassium 2.7 L* (3.5-5.1) mmol/L Chloride 111 H (98-107) mmol/L Carbon Dioxide 16 L (22-30) mmol/L Anion Gap 16 mmol/L BUN 24 H (9-20) mg/dL Creatinine 1.44 H (0.66-1.25) mg/dL Est GFR (CKD-EPI)AfAm 75 (>60 ml/min/1.73 sqM) Est GFR (CKD-EPI)NonAf 65 (>60 ml/min/1.73 sqM) Glucose 189 H (74-99) mg/dL POC Glucose (mg/dL) (70-110) mg/dL POC Glu Armament Installer ID Calcium 7.7 L (8.4-10.2) mg/dL Total Bilirubin 1.7 H (0.2-1.3) mg/dL AST 57 (17-59) U/L ALT 33 (4-49) U/L Alkaline Phosphatase 440 H (38-126) U/L Ammonia <9 (<30) umol/L Creatine Kinase 106 (55-170) U/L Troponin I (0.000-0.034) ng/mL Total Protein 6.0 L (6.3-8.2) g/dL Albumin 3.5 (3.5-5.0) g/dL Urine Color Urine Appearance (Clear) Urine RBC (0-5) /hpf Urine WBC (0-5) /hpf Urine Bacteria (None) /hpf Hyaline Casts (0-2) /lpf Urine Mucus (None) /hpf Stool Occult Blood (Negative) Salicylates <1.0 mg/dL Urine Opiates Screen (NotDetected) Ur Oxycodone Screen (NotDetected) Urine Methadone Screen (NotDetected) Ur Propoxyphene Screen (NotDetected) Acetaminophen <10.0 ug/mL Ur Barbiturates Screen (NotDetected) U Tricyclic Antidepress (NotDetected) Ur Phencyclidine Scrn (NotDetected) Ur Amphetamines Screen (NotDetected) U Methamphetamines Scrn (NotDetected) U Benzodiazepines Scrn (NotDetected) Urine Cocaine Screen (NotDetected) U Marijuana (THC) Screen (NotDetected) Serum Alcohol <10 mg/dL Blood Type Blood Type Confirm Blood Type Recheck Bld Type Recheck Status Antibody Screen Spec Expiration Date 10/20/21 10/20/21 10/20/21 Range/Units 09:28 09:28 09:38 WBC (3.8-10.6) k/uL RBC (4.30-5.90) m/uL Hgb (13.0-17.5) gm/dL Hct (39.0-53.0) % MCV (80.0-100.0) fL MCH (25.0-35.0) pg MCHC (31.0-37.0) g/dL RDW (11.5-15.5) % Plt Count (150-450) k/uL MPV Neutrophils % % Lymphocytes % % Monocytes % % Eosinophils % % Basophils % % Neutrophils # (1.3-7.7) k/uL Lymphocytes # (1.0-4.8) k/uL Monocytes # (0-1.0) k/uL Eosinophils # (0-0.7) k/uL Basophils # (0-0.2) k/uL Hypochromasia PT (9.0-12.0) sec INR (<1.2) APTT (22.0-30.0) sec VBG pH (7.31-7.41) VBG pCO2 (37-51) mmHg VBG HCO3 (24-28) mmol/L Sodium (137-145) mmol/L Potassium (3.5-5.1) mmol/L Chloride (98-107) mmol/L Carbon Dioxide (22-30) mmol/L Anion Gap mmol/L BUN (9-20) mg/dL Creatinine (0.66-1.25) mg/dL Est GFR (CKD-EPI)AfAm (>60 ml/min/1.73 sqM) Est GFR (CKD-EPI)NonAf (>60 ml/min/1.73 sqM) Glucose (74-99) mg/dL POC Glucose (mg/dL) (70-110) mg/dL POC Glu Armament Installer ID Calcium (8.4-10.2) mg/dL Total Bilirubin (0.2-1.3) mg/dL AST (17-59) U/L ALT (4-49) U/L Alkaline Phosphatase (38-126) U/L Ammonia (<30) umol/L Creatine Kinase (55-170) U/L Troponin I <0.012 (0.000-0.034) ng/mL Total Protein (6.3-8.2) g/dL Albumin (3.5-5.0) g/dL Urine Color Urine Appearance (Clear) Urine RBC (0-5) /hpf Urine WBC (0-5) /hpf Urine Bacteria (None) /hpf Hyaline Casts (0-2) /lpf Urine Mucus (None) /hpf Stool Occult Blood Positive (Negative) Salicylates mg/dL Urine Opiates Screen (NotDetected) Ur Oxycodone Screen (NotDetected) Urine Methadone Screen (NotDetected) Ur Propoxyphene Screen (NotDetected) Acetaminophen ug/mL Ur Barbiturates Screen (NotDetected) U Tricyclic Antidepress (NotDetected) Ur Phencyclidine Scrn (NotDetected) Ur Amphetamines Screen (NotDetected) U Methamphetamines Scrn (NotDetected) U Benzodiazepines Scrn (NotDetected) Urine Cocaine Screen (NotDetected) U Marijuana (THC) Screen (NotDetected) Serum Alcohol mg/dL Blood Type A Positive Blood Type Confirm Blood Type Recheck No Previous Record Bld Type Recheck Status CABO Indicated Antibody Screen NEGATIVE Spec Expiration Date 10/23/2021 - 232710/20/21 10/20/21 Range/Units 11:30 11:40 WBC (3.8-10.6) k/uL RBC (4.30-5.90) m/uL Hgb (13.0-17.5) gm/dL Hct (39.0-53.0) % MCV (80.0-100.0) fL MCH (25.0-35.0) pg MCHC (31.0-37.0) g/dL RDW (11.5-15.5) % Plt Count (150-450) k/uL MPV Neutrophils % % Lymphocytes % % Monocytes % % Eosinophils % % Basophils % % Neutrophils # (1.3-7.7) k/uL Lymphocytes # (1.0-4.8) k/uL Monocytes # (0-1.0) k/uL Eosinophils # (0-0.7) k/uL Basophils # (0-0.2) k/uL Hypochromasia PT (9.0-12.0) sec INR (<1.2) APTT (22.0-30.0) sec VBG pH 7.10 L* (7.31-7.41) VBG pCO2 66 H (37-51) mmHg VBG HCO3 20 L (24-28) mmol/L Sodium (137-145) mmol/L Potassium (3.5-5.1) mmol/L Chloride (98-107) mmol/L Carbon Dioxide (22-30) mmol/L Anion Gap mmol/L BUN (9-20) mg/dL Creatinine (0.66-1.25) mg/dL Est GFR (CKD-EPI)AfAm (>60 ml/min/1.73 sqM) Est GFR (CKD-EPI)NonAf (>60 ml/min/1.73 sqM) Glucose (74-99) mg/dL POC Glucose (mg/dL) (70-110) mg/dL POC Glu Armament Installer ID Calcium (8.4-10.2) mg/dL Total Bilirubin (0.2-1.3) mg/dL AST (17-59) U/L ALT (4-49) U/L Alkaline Phosphatase (38-126) U/L Ammonia (<30) umol/L Creatine Kinase (55-170) U/L Troponin I (0.000-0.034) ng/mL Total Protein (6.3-8.2) g/dL Albumin (3.5-5.0) g/dL Urine Color Dark Brown Urine Appearance Turbid (Clear) Urine RBC >182 H (0-5) /hpf Urine WBC 166 H (0-5) /hpf Urine Bacteria Moderate H (None) /hpf Hyaline Casts 82 H (0-2) /lpf Urine Mucus Few H (None) /hpf Stool Occult Blood (Negative) Salicylates mg/dL Urine Opiates Screen Not Detected (NotDetected) Ur Oxycodone Screen Not Detected (NotDetected) Urine Methadone Screen Not Detected (NotDetected) Ur Propoxyphene Screen Not Detected (NotDetected) Acetaminophen ug/mL Ur Barbiturates Screen Detected H (NotDetected) U Tricyclic Antidepress Not Detected (NotDetected) Ur Phencyclidine Scrn Not Detected (NotDetected) Ur Amphetamines Screen Not Detected (NotDetected) U Methamphetamines Scrn Not Detected (NotDetected) U Benzodiazepines Scrn Detected H (NotDetected) Urine Cocaine Screen Not Detected (NotDetected) U Marijuana (THC) Screen Detected H (NotDetected) Serum Alcohol mg/dL Blood Type Blood Type Confirm Blood Type Recheck Bld Type Recheck Status Antibody Screen Spec Expiration Date - EKG Data EKG Comments: EKG demonstrates sinus bradycardia cardio with a rate of 34. VA interval 124. QRS 90. QTC of 438. No acute ST segment elevations or depressions Disposition Clinical Impression: Acute respiratory failure, Pneumonia, GI bleed, Cerebellar ataxia, Encephalopathy acute Disposition: ADMITTED IP TO THIS HOSP Condition: Critical Is patient prescribed a controlled substance at d/c from ED?: No Referrals: Ermelinda Larson MD [Primary Care Provider] - 1-2 days Time of Disposition: 11:22 Decision to Admit Reason: Admit from EC Decision Date: 10/20/21 Decision Time: 11:22
[2021-10-20 09:36] LABS: Basophils # (A) 0.1 k/uL (0-0.2); Basophils % (A) 0 %; Eosinophils % (A) 0 %; HCT 38.6 % (39.0-53.0); HGB 12.3 gm/dL (13.0-17.5); Hypochromasia Slight; Lymphocytes # (A) 0.9 k/uL (1.0-4.8); Lymphocytes % (A) 7 %; MCH 30.7 pg (25.0-35.0); MCHC 31.7 g/dL (31.0-37.0); MCV 96.8 fL (80.0-100.0); Mean Platelet Volume 8.6; Monocytes # (A) 0.8 k/uL (0-1.0); Monocytes % (A) 6 %; Neutrophils % (A) 86 %; Platelet Count 201 k/uL (150-450); RBC 3.99 m/uL (4.30-5.90); RDW 13.2 % (11.5-15.5); WBC 13.9 k/uL (3.8-10.6)
--- NOTE | 2021-10-20 09:45 | XR ---
EXAMINATION TYPE: XR chest 1V portable DATE OF EXAM: 10/20/2021 COMPARISON: 06/24/2020 HISTORY: Altered mental status TECHNIQUE: Single frontal view of the chest is obtained. FINDINGS: Patchy left upper lobe and perihilar infiltrate. A pleural effusion or pneumothorax. Heart size normal. IMPRESSION: Patchy left upper lobe and perihilar infiltrate
--- NOTE | 2021-10-20 09:46 | XR ---
EXAMINATION TYPE: XR pelvis AP view DATE OF EXAM: 10/20/2021 COMPARISON: NONE HISTORY: Pain The osseous structures are intact and the joint spaces are preserved. No acute fracture is seen. Vi sualized bowel gas pattern is nonspecific. IMPRESSION: 1. No acute fracture.
[2021-10-20 09:49] LABS: INR 1.9 (<1.2)
[2021-10-20 09:50] LABS: Partial Thromboplastin Time 29.8 sec (22.0-30.0); Prothrombin Time 19.3 sec (9.0-12.0)
[2021-10-20 09:55] LABS: ALT 33 U/L (4-49); AST 57 U/L (17-59); Acetaminophen <10.0 ug/mL; African American GFR (CKD) 75 (>60 ml/min/1.73 sqM); Albumin 3.5 g/dL (3.5-5.0); Alcohol <10 mg/dL; Alkaline Phosphatase 440 U/L (38-126); Anion Gap 16 mmol/L; Blood Urea Nitrogen 24 mg/dL (9-20); Calcium 7.7 mg/dL (8.4-10.2); Carbon Dioxide 16 mmol/L (22-30); Chloride 111 mmol/L (98-107); Creatine Kinase 106 U/L (55-170); Glucose 189 mg/dL (74-99); Non-African American GFR(CKD) 65 (>60 ml/min/1.73 sqM); Salicylate <1.0 mg/dL; Sodium 143 mmol/L (137-145); Total Bilirubin 1.7 mg/dL (0.2-1.3)
[2021-10-20 10:05] LABS: Potassium 2.7 mmol/L (3.5-5.1)
[2021-10-20] MEDS ORDERED: MORPHINE SULFATE 4 MG/ML SYRINGE IVP STA (10:07)
[2021-10-20] MEDS ORDERED: POTASSIUM CHLORIDE 20 MEQ in WATER FOR INJECTION 1 100ML.BAG IVPB STA (10:09)
[2021-10-20] MEDS ORDERED: PNEUMONIA PROTOCOL UTILIZED 1 EACH MISC PO PRN (10:10)
[2021-10-20] MEDS ORDERED: LEVOFLOXACIN 750MG-D5W PMX 750 MG in DEXTROSE/WATER 1 150ML.BAG IVPB STA (10:10)
--- NOTE | 2021-10-20 11:19 | CT ---
EXAMINATION TYPE: CT brain cspine wo con DATE OF EXAM: 10/20/2021 COMPARISON: CT dated 12/20/2017 HISTORY: Altered mental status. CT DLP: 1445.9 mGycm Automated exposure control for dose reduction was used. TECHNIQUE: CT scan of the head and cervical spine are performed without contrast. FINDINGS: Motion artifacts. There is no acute intracranial hemorrhage, mass effect, or midline shif t identified. The ventricles and sulci are within normal limits in size. The globes are intact . r-fluid level within the left maxillary sinus. Clear mastoid air cells. Motion artifacts. Cervical spine is visualized in its entirety from C1 through upper thoracic levels and demonstrates satisfactory alignment without evidence of acute fracture or dislocation. Preverteb ral soft tissue appears within normal limits. The C1-C2 articulation is unremarkable. Right apical p ulmonary infiltration suspicious for acute infection/pneumonia. IMPRESSION: 1. With the limitation of the artifactual images, there is no acute fracture or dislocation evident i n the cervical spine. 2. No acute intracranial hemorrhage, mass effect, or midline shift is seen. 3. Right apical pulmonary infiltration concerning for pneumonia, please correlate clinically.
[2021-10-20] MEDS ORDERED: HYDROmorphone 1 MG/ML 1 ML SYRINGE IVP PRN (11:27)
[2021-10-20] MEDS ORDERED: LORazepam 2 MG/ML INJ IV PRN (11:27)
[2021-10-20] MEDS ORDERED: SODIUM CHLORIDE 0.9% 1,000 ML IV SCH (11:30)
[2021-10-20 12:03] VITALS: BP 85/31; PULSE 48; RESP 20
[2021-10-20 12:10] LABS: Bacteria,Urine Moderate /hpf; Hyaline Casts,Urine 82 /lpf (0-2); Mucus,Urine Few /hpf; RBC,Urine >182 /hpf (0-5); WBC,Urine 166 /hpf (0-5)
[2021-10-20 12:11] LABS: VBG PH 7.1 (7.31-7.41)
[2021-10-20 12:11] LABS: Appearance,Urine Turbid (Clear); Color,Urine Dark Brown
[2021-10-20 13:16] LABS: Amphetamine Screen,Urine Not Detected (NotDetected); Barbiturate Screen,Urine Detected (NotDetected); Benzodiazepines Screen,Urine Detected (NotDetected); Cocaine Screen,Urine Not Detected (NotDetected); Methadone Screen, Urine Not Detected (NotDetected); Opiate Screen,Urine Not Detected (NotDetected); Oxycodone Screen, Urine Not Detected (NotDetected); Phencyclidine Screen,Urine Not Detected (NotDetected); Tricyclic Antidepressant,Urine Not Detected (NotDetected); Urn Cannabinoid Scrn Detected (NotDetected)
== END 2021-10-20 12:15 | disposition other institution (70) ==
LOC: EC 09:00
DX: J96.00 Acute respiratory failure, unspecified whether with hypoxia or hypercapnia (principal); K92.2 Gastrointestinal hemorrhage, unspecified; G11.9 Hereditary ataxia, unspecified; Z88.0 Allergy status to penicillin; Z88.5 Allergy status to narcotic agent
CPT/HCPCS: 36415; 93005; 86900; 86901; 80053; 82140; 82550; 82803; 84484; 85025; 85610; 85730; 86850; 82272; 81001; 87040; 80306; 80143; 87086; 80179; 72170; 71045; 72125; 70450; 99285; 96374; 96375; 96361; G0480; J2060; J2270; 80320

== ENCOUNTER 2021-10-20 12:30 | Inpatient (IN) | payer MEDICAID ==
[2021-10-20] MEDS ORDERED: ACETAMINOPHEN SUPPOSITORY 650 MG SUPP RECTAL STA (12:37)
[2021-10-20] MEDS ORDERED: LORazepam 2 MG/ML INJ IV PRN (12:38)
[2021-10-20] MEDS ORDERED: MORPHINE SULFATE 2 MG/ML SYRINGE IVP PRN (12:40)
[2021-10-20] MEDS ORDERED: ATROPINE OPHTH SOLN 1% 5ML BTL SUBLINGUAL PRN (12:42)
[2021-10-20] MEDS ORDERED: ONDANSETRON 4 MG/2 ML VIAL IVP PRN (12:44)
[2021-10-20] MEDS ORDERED: ACETAMINOPHEN SUPPOSITORY 650 MG SUPP RECTAL PRN (12:50)
[2021-10-20] MEDS ORDERED: SCOPOLAMINE 1 MG/72 HR PATCH TRANSDERM SCH (13:00)
[2021-10-20] MEDS ORDERED: MORPHINE SULFATE (100 MG/2 ML) 100 MG in SODIUM CHLORIDE 0.9% 100 ML IV SCH (13:15)
[2021-10-20] MEDS ORDERED: GLYCOPYRROLATE 0.2 MG/ML 2 ML VIAL IVP SCH (18:00)
[2021-10-20 20:01] VITALS: RESP 24
--- NOTE | 2021-10-20 21:22 | HP ---
HISTORY AND PHYSICAL CHIEF COMPLAINTS: Change in mental status. HISTORY OF PRESENT ILLNESS: This 31-year-old gentleman with a past medical of spinal cerebellar ataxia who is wheelchair bound, was found to be having some change in mental status. Patient also had some bleeding and patient was taken to [facility]. Patient was found to have pneumonia, encephalopathy and multiple complex medical issues and case was discussed with the ER physician, with the family and the family wanted the patient to be comfort care and the patient was started on morphine drip. At this time, the patient is being closely monitored. The patient is on supplemental oxygen also. The patient is unable to give a coherent history. Most of the history taken from my discussion with staff and review of chart and discussion with the family at the bedside. PAST MEDICAL HISTORY: History of spinal cerebellar ataxia, neuropathy. MEDICATIONS: Home medications are reviewed and include: Valium. Dose and rest of medications noted. ALLERGIES: ZITHROMAX. Family history, social history and review of systems could not be taken. PHYSICAL EXAMINATION: Pulse is 50, blood pressure is 80/60. Respirations 20. HEENT: Conjunctivae normal. NECK: No JVD. CARDIOVASCULAR: S1, S2 muffled. RESPIRATIONS: A few scattered rhonchi. ABDOMEN: Soft. LEGS are no edema. No swelling. NERVOUS SYSTEM: Patient is stuporous. SKIN: No ulcer or rash. JOINTS: No active deforming arthropathy. LABS: Not available. ASSESSMENT: 1. Bilateral pneumonia with acute hypoxic respiratory failure. 2. Change in mental status, metabolic encephalopathy. 3. Spinocerebellar ataxia. 4. NO CODE, NO CPR, NO VENT. 5. HOSPICE ON COMFORT MEASURES. RECOMMENDATIONS AND DISCUSSION: This is a 31-year-old gentleman who presented with multiple complex medical issues, we will monitor the patient closely. Continue with comfort measures. Continue the morphine drip and supplemental oxygen. The prognosis extremely guarded, which I discussed with the family on multiple occasions and understands and agrees. The patient is followed by Dr. Larson in the outpatient setting. Further recommendations to follow. MMODL / IJN: [id number] /
== END 2021-10-20 22:46 | disposition expired | DRG 951 ==
LOC: EC 12:30 → 5NMEDONC 12:34
PROVIDERS: ADMIT Family Medicine; ATTEND Family Medicine
DX: Z51.5 Encounter for palliative care (principal); J18.9 Pneumonia, unspecified organism; J96.01 Acute respiratory failure with hypoxia; G93.41 Metabolic encephalopathy; G11.19 Other early-onset cerebellar ataxia; Z66 Do not resuscitate; R58 Hemorrhage, not elsewhere classified; Z99.3 Dependence on wheelchair